=== PATIENT | female | born 1960 | race Caucasian/White ===

== ENCOUNTER 2020-05-22 11:44 | Emergency (ER) | payer OTHER, SELFPAY ==
--- NOTE | ~2020-05-22 | CT_ITS ---
EXAMINATION: CT brain wo con DATE: 05/22/2020 12:57 INDICATION: Fall with head injury TECHNIQUE: Computed tomography (CT) of the head was performed without intravenous contrast. Sagittal and coronal reconstructions were performed. The mA was adjusted according to patient size. Iterative reconstruction technique was employed. The dose-length product was 605.33 mGy-cm. COMPARISON: None FINDINGS: No fracture. No acute intracranial hemorrhage, acute infarction or abnormal extra axial fluid collect ion. Symmetric prominence of the sulci and subarachnoid spaces overlying the convexities consistent w ith mild age-appropriate diffuse cerebral volume loss. Ventricles are normal and symmetric. No mass/ mass effect. The orbits, paranasal sinuses and right mastoid air cells are normal. Postoperative baron ge of prior left mastoidectomy. IMPRESSION: 1. No fracture or acute intracranial process. Reviewed, dictated and finalized at location A. RONMENTAL SCIENTIST
--- NOTE | ~2020-05-22 | XR_ITS ---
EXAMINATION: XR shoulder RT min 2V DATE: 05/22/2020 13:08 INDICATION: Right shoulder pain and limited range of motion post fall down stairs one week prior TECHNIQUE: AP internally and externally rotated, AP oblique externally rotated and transscapular Y vi ews of the right shoulder were obtained. COMPARISON: None FINDINGS: There is mild widening of the right acromioclavicular joint with bulging of the joint capsule and sev eral calcification project over the widened disc space consistent with a likely type 2 acromioclavicu lar separation with minute capsular avulsion fracture fragments. No widening of the coracoclavicular interval to suggest higher grade injury. Alignment is otherwise normal. No other lesions suspicious f or fracture identified. Glenohumeral joint space is normal. Large calcified AP window lymph node cons istent with old granulomatous disease. Visualized portions of the lungs are clear. IMPRESSION: Likely type 2 acromioclavicular joint separation Reviewed, dictated and finalized at location A. CALL PHARMACY TECHNICIAN
--- NOTE | ~2020-05-22 | CT_ITS ---
EXAMINATION: CT cervical spine wo con DATE: 05/22/2020 12:57 INDICATION: Neck and bilateral shoulder pain post fall down stairs TECHNIQUE: Computed tomography (CT) of the cervical spine was performed without intravenous contrast. Automated exposure control and iterative reconstruction technique were employed. The dose-length pro duct was 278.08 mGy-cm. COMPARISON: None FINDINGS: Nonfocal mild reversal of the normal cervical lordosis which could be positional or secondary to musc le spasm. Vertebral body heights are normal. No fracture. Moderate disc height loss at C5-C6. There i s associated posterior disc bulge as well as severe bilateral uncovertebral osteoarthritis at this le esthela resulting in mild central canal and bilateral neural foraminal stenosis at this level. Mild disc height loss with additional disc bulges and mild bilateral uncovertebral osteoarthritis resulting in minimal central canal and neural foraminal stenosis at C3-C4 and C4-C5. Mild facet osteoarthritis at a few levels in the cervical spinal both the left and right. Small amount of atherosclerotic calcific lesion at the left carotid bulb. Cervical soft tissues are otherwise unremarkable. Status post left mastoidectomy. Visualized airway and apices of lungs are clear. IMPRESSION: 1. Cervical spondylosis, moderate at C5-C6, otherwise mild. No acute osseous abnormality. Reviewed, dictated and finalized at location A. LE TIER IMPRESSION: 1. Cervical spondylosis, moderate at C5-C6, otherwise mild. No acute osseous ab normality.
--- NOTE | ~2020-05-22 | XR_ITS ---
EXAMINATION: XR sternum min 2V DATE: 05/22/2020 13:08 INDICATION: Midsternal chest pain post fall TECHNIQUE: Lateral and oblique PA views of the sternum were obtained. COMPARISON: None. FINDINGS: Alignment is normal. No fracture. No evident presternal or retrosternal soft tissue swelling to sugge st occult injury. Prominent calcified AP window lymph nodes consistent with old granulomatous disease . Visualized portions of the lungs are clear. IMPRESSION: 1. No acute osseous abnormality. Reviewed, dictated and finalized at location A. IGERATION SPECIALIST
[2020-05-22 11:52] VITALS: BP 130/67; PULSE 75; RESP 20; TEMP 36.4; O2SAT 99
--- NOTE | 2020-05-22 13:13 | ED.FALL ---
HPI - Fall General Chief Complaint: Fall Stated Complaint: fall down stairs on 05/11 Time Seen by Provider: 05/22/20 12:12 Source: patient Mode of arrival: ambulatory Limitations: no limitations History of Present Illness HPI Narrative: Patient is a 59-year-old female who presents with multiple complaints and injuries after a fall on 05/11. Patient reports slipping and falling down 14 steps. Denies LOC. Reports hitting head and neck. Complaining of right shoulder pain and sternal pain. She denies chest pain or shortness of breath. She reports pain in the sternum with deep breathing. She reports not coming in sooner because she thought it was all musculoskeletal injuries but reports wanting to be checked out. She reports taking [id number] medications with limited pain relief. complaint: fall Related Data Allergies Allergy/AdvReac Type Severity Reaction Status Date / Time No Known Allergies Allergy Verified 05/22/20 12:16 Review of Systems Review of Systems: Narrative: CONSTITUTIONAL: Denies fever, chills, or sweats. EYES: Denies visual changes, redness, or discharge. ENT: Denies rhinorrhea, congestion, sore throat, or otalgia. CARDIOVASCULAR: Denies chest pain, palpitations, or edema. RESPIRATORY: Denies cough or dyspnea. GASTROINTESTINAL: Denies abdominal pain, nausea, vomiting, or diarrhea. GENITOURINARY: Denies dysuria or hematuria. SKIN: Denies rash or itching. MUSCULOSKELETAL: Right shoulder pain, sternal pain NEUROLOGIC: Denies headache, numbness, dizziness, or weakness. PSYCHIATRIC: Denies anxiety or depression. [facility] Past Medical History Medical History (Updated 05/22/20 @ 13:37 by LAURO Trejo) Epilepsy Family History Family History (Updated 05/22/20 @ 13:21 by LAURO Trejo) Other No significant family history Social History Social History (Updated 05/22/20 @ 13:22 by LAURO Trejo) Smoking status: Current every day smoker Tobacco type: cigarettes Alcohol intake: never Substance use: never Living arrangements: alone Gender identity (if verbalized by the patient): Female Exam Narrative: Exam Narrative: GENERAL: Well-appearing, well-nourished, and in no acute distress. HEAD: Normocephalic, atraumatic. EYES: No redness or drainage. ENT: Mucous membranes pink and moist. NECK: AROM. Supple. No lymphadenopathy. CHEST: No respiratory distress. HEART: Regular rate and rhythm. No murmur appreciated. EXTREMITIES: Normal range of motion. No edema. SKIN: Warm, dry, no rash. NEURO: No focal deficits. Alert and oriented x3. Gait steady. PSYCH: Normal affect. No signs of depression or anxiety. Course Vital Signs Vital signs: Vital Signs Temperature 36.4 C L 05/22/20 11:52 Pulse Rate 75 05/22/20 11:52 Respiratory Rate 20 05/22/20 11:52 Blood Pressure 130/67 05/22/20 11:52 Pulse Oximetry 99 05/22/20 11:52 Temperature 36.4 C L 05/22/20 11:52 Pulse Rate 75 05/22/20 11:52 Respiratory Rate 20 05/22/20 11:52 Blood Pressure 130/67 05/22/20 11:52 Pulse Oximetry 99 05/22/20 11:52 Reviewed-patient is informed that they may have pre-hypertension or hypertension based on a blood pressure reading. I recommend the patient call the primary care provider listed on their discharge instructions or a physician of their choice this week to arrange follow-up for further evaluation of possible pre-hypertension or hypertension. MDM - Fall MDM Narrative Medical decision making narrative: Patient CT of head normal unremarkable, x-ray of sternum was negative. Patient's x-ray of right shoulder shows a likely type 2 acromioclavicular joint separation. Patient put in sling for comfort, discussed pain management and follow-up with orthopedics. Patient is stable for discharge home with outpatient follow-up as discussed. Differential Diagnosis Differential diagnosis: Likely other (Sprain, strain, fracture, dislocation) Imaging Data
[2020-05-22 14:09] VITALS: BP 138/88; PULSE 80; RESP 20; O2SAT 99
== END 2020-05-22 14:11 | disposition home or self-care (01) ==
PROVIDERS: Emergency Provider Nurse Practitioner; PCP Family Medicine
DX: S43.101A Unspecified dislocation of right acromioclavicular joint, initial encounter (principal); G40.909 Epilepsy, unspecified, not intractable, without status epilepticus; F17.210 Nicotine dependence, cigarettes, uncomplicated; M47.812 Spondylosis without myelopathy or radiculopathy, cervical region; R03.0 Elevated blood-pressure reading, without diagnosis of hypertension; W10.9XXA Fall (on) (from) unspecified stairs and steps, initial encounter
CPT/HCPCS: 70450; 71120; 72125; 73030; 99284; A4565

== ENCOUNTER 2020-12-01 15:39 | Outpatient (CLI) | payer OTHER, SELFPAY ==
--- NOTE | ~2020-12-01 | MM_ITS ---
EXAMINATION: MM screening janelle BI w phan HISTORY: Screening mammogram TECHNIQUE: Craniocaudal and mediolateral oblique 3-D tomosynthesis images were obtained and synthetic 2-D images were generated. CAD analysis was submitted and interpreted. COMPARISON: 07/21/2018 BREAST PARENCHYMAL COMPOSITION: There are scattered areas of fibroglandular density. FINDINGS: There is no evidence of suspicious mass, calcification, or architectural distortion to sugg est malignancy in either breast. There has been no suspicious interval change. IMPRESSION: 1. No mammographic evidence of malignancy. 2. Recommend routine screening mammography in one year. BI-RADS Category 1: Negative Reviewed, dictated and finalized at location A.
== END 2020-12-01 15:40 | disposition home or self-care (01) ==
LOC: ANHIMG 15:43
PROVIDERS: PCP Family Medicine; Visit Provider Family Medicine
DX: Z12.31 Encounter for screening mammogram for malignant neoplasm of breast (principal)
CPT/HCPCS: 77063; 77067

== ENCOUNTER 2021-09-18 13:06 | Outpatient (CLI) | payer OTHER, SELFPAY | END 2021-09-18 13:07 | disposition home or self-care (01) | LOC: ANHAUDIO 13:07 | PROVIDERS: PCP Family Medicine; Visit Provider Otolaryngology | DX: H66.91 Otitis media, unspecified, right ear (principal) | CPT/HCPCS: 92557; 92567 ==

== ENCOUNTER 2021-12-14 07:59 | Outpatient (CLI) | payer OTHER, SELFPAY ==
--- NOTE | 2022-01-04 15:16 | WPDSLEEPSTUD ---
Sleep Study Date of Study: 12/14/21 Ordering Provider: Pablo Solis DO Interpreting Physician: Karlie Hoover MD Sleep Study Type: Polysomnogram Height: 1.7 m Weight: 80.739 kg Body Mass Index: 27.8 Neck Circumference (inches): 13 [place]: 19 Reason for Sleep Study Hypersomnolence Sleep History Pat Dahl is a 61-year-old woman with Obstructive sleep apnea using CPAP for many years. In 2013 she had gastric bypass with a 150 lb weight loss which she has maintained. She has had a sleep study since and this showed that she continued to have apnea. She has developed atrial fibrillation therefore a repeat sleep study has been ordered by Dr. Solis. There is a family history of sleep apnea with both parents 3 brothers and a sister all snoring loudly. She rarely awakens from sleep feeling short of breath. She occasionally awakens at night with heartburn, belching or coughing. She constantly snores and it is always loud enough that others complain about it. She frequently has trouble sleeping with a cold, but rarely gasps for breath at night. She occasionally has breathing problems at night observed by others. She occasionally sweats excessively night and frequently notices her heart pounding or beating irregularly at night. She constantly falls asleep during the day, occasionally falls asleep involuntarily and occasionally falls asleep while driving. She occasionally has loss of muscle tone with strong emotion. She frequently has daytime difficulties due to excessive sleepiness. She rarely feels paralyzed on waking or falling asleep. She constantly has vivid dreamlike scenes upon awakening or falling asleep. She does not feel afraid to go to sleep. She frequently has nightmares. She frequently remembers her dreams. She frequently has racing thoughts. She frequently feels sad or depressed. She constantly has anxiety. She frequently has muscular tension. She frequently notices parts of her body jerking and she frequently kicks at night. She frequently has crawling and aching feelings in her legs and leg pain during the night. She will occasionally has morning jaw pain. She does not grind her teeth during sleep. She occasionally is bothered by pain during the day, occasionally awakened by pain at night. She occasionally wakes up feeling stiff in the morning with sore achy muscles and pain in the neck and spine. She has headaches, memory problems and depression. Normal bedtime is 11:00 p.m. taking 30 minutes to fall asleep typically waking every hour or 2 to urinate. She returns to sleep within 10 minutes. She wakes the morning at 9:00 a.m.. On weekends, her bedtime is later, midnight to 1 a.m. and she wakes by 11:00 a.m.. She estimates getting 12-15 hours of sleep at night. She takes naps in the afternoon or evening. A short nap is not refreshing. She is usually drowsy for 3 hours after waking. She does not feel good in the morning, feels more alert in the afternoon and evening. Habits: Never smoked tobacco. Caffeine: she drinks tea. No alcohol or recreational drugs. [facility] Past Medical History Medical History Afib Allergies Anxiety Arthritis Bilateral carpal tunnel syndrome Bilateral hearing loss Body mass index (bmi) 29.0-29.9, adult (03/04/19) Depression Epilepsy GERD (gastroesophageal reflux disease) Hyperlipidemia Liver disease Obstructive sleep apnea KELIN on CPAP Seizure disorder Traumatic brain injury Surgical History Surgical History Gastric bypass status for obesity History of bilateral cataract extraction History of elbow surgery History of gastric bypass History of mastoidectomy Family History Family History Other Diabetes mellitus Family history of cardiovascular disease Family history of malignant neoplasm Social History Socia
[2022-01-04 15:20] VITALS: BMI 27.8
--- NOTE | 2022-01-17 12:05 | SLEEP ---
PT IS TO BE SCHEDULED FOR A PAP TITRATION
--- NOTE | 2022-06-01 09:39 | SLEEP ---
pt came in for a cpap titration [id number]
== END 2021-12-15 06:07 | disposition home or self-care (01) ==
PROVIDERS: PCP Family Medicine; Visit Provider Internal Medicine Cardiovascular Disease
DX: G47.33 Obstructive sleep apnea (adult) (pediatric) (principal); G25.81 Restless legs syndrome
CPT/HCPCS: 95810

== ENCOUNTER 2022-05-31 08:11 | Outpatient (CLI) | payer OTHER, SELFPAY ==
--- NOTE | 2022-06-18 07:46 | WPDSLEEPSTUD ---
Sleep Study Date of Study: 05/31/22 Ordering Provider: Pablo Solis DO Interpreting Physician: Marissa Gill DO Sleep Study Type: BiPAP Titration Height: 1.7 m Weight: 80.739 kg Body Mass Index: 27.8 Neck Circumference (inches): 13 [place]: 19 Reason for Sleep Study PSG on 12/14/2021 showed an AHI of 10.6 with desaturation down to 84%. She spent 24.2% of the study with an SpO2 below 88%. Sleep History Pat Dahl is a 61-year-old woman with Obstructive sleep apnea using CPAP for many years.? In 2013 she had gastric bypass with a 150 lb weight loss which she has maintained.? She has had a sleep study since and this showed that she continued to have apnea.? She has developed atrial fibrillation therefore a repeat sleep study has been ordered by Dr. Solis.? There is a family history of sleep apnea with both parents 3 brothers and a sister all snoring loudly.? She rarely awakens from sleep feeling short of breath.? She occasionally awakens at night with heartburn, belching or coughing.? She constantly snores and it is always loud enough that others complain about it. She frequently has trouble sleeping with a cold, but rarely gasps for breath at night.? She occasionally has breathing problems at night observed by others.? She occasionally sweats excessively night and frequently notices her heart pounding or beating irregularly at night.? She constantly falls asleep during the day, occasionally falls asleep involuntarily and occasionally falls asleep while driving. She occasionally has loss of muscle tone with strong emotion.? She frequently has daytime difficulties due to excessive sleepiness.? She rarely feels paralyzed on waking or falling asleep.? She constantly has vivid dreamlike scenes upon awakening or falling asleep.? She does not feel afraid to go to sleep.? She frequently has nightmares.? She frequently remembers her dreams.? She frequently has racing thoughts.? She frequently feels sad or depressed.? She constantly has anxiety.? She frequently has muscular tension.? She frequently notices parts of her body jerking and she frequently kicks at night.? She frequently has crawling and aching feelings in her legs and leg pain during the night.? She will occasionally has morning jaw pain.? She does not grind her teeth during sleep.? She occasionally is bothered by pain during the day, occasionally awakened by pain at night.? She occasionally wakes up feeling stiff in the morning with sore achy muscles and pain in the neck and spine.? She has headaches, memory problems and depression. Normal bedtime is 11:00 p.m. taking 30 minutes to fall asleep typically waking every hour or 2 to urinate.? She returns to sleep within 10 minutes.? She wakes the morning at 9:00 a.m..? On weekends, her bedtime is later, midnight to 1 a.m. and she wakes by 11:00 a.m..? She estimates getting 12-15 hours of sleep at night.? She takes naps in the afternoon or evening.? A short nap is not refreshing.? She is usually drowsy for 3 hours after waking.? She does not feel good in the morning, feels more alert in the afternoon and evening. Habits:? Never smoked tobacco.? Caffeine: she drinks tea.? No alcohol or recreational drugs. [facility] Past Medical History Medical History Afib Allergies Anxiety Arthritis Bilateral carpal tunnel syndrome Bilateral hearing loss Body mass index (bmi) 29.0-29.9, adult (03/04/19) Depression Epilepsy Epilepsy GERD (gastroesophageal reflux disease) Hyperlipidemia Liver disease Obstructive sleep apnea KELIN on CPAP Seizure disorder Traumatic brain injury Surgical History Surgical History Gastric bypass status for obesity Gastric bypass status for obesity History of bilateral cataract extraction History of elbow surgery History of gastric bypass History of mastoidectomy Family History Family History (Reviewed 06/18/22 @ 07:49
[2022-06-18 10:31] VITALS: BMI 27.8
== END 2022-06-01 05:35 | disposition home or self-care (01) ==
PROVIDERS: PCP Family Medicine; Visit Provider Internal Medicine Cardiovascular Disease
DX: G47.33 Obstructive sleep apnea (adult) (pediatric) (principal)
CPT/HCPCS: 95811

== ENCOUNTER 2023-07-22 08:32 | Outpatient (CLI) | payer OTHER, SELFPAY ==
--- NOTE | ~2023-07-22 | NM_ITS ---
EXAMINATION: NM trisha stress w perfusion DATE: 07/22/2023 10:55 INDICATION: Chest pain. TECHNIQUE: Rest images were obtained following intravenous administration of 10.3 mCi Tc99m tetrofosm in (Myoview). The patient was infused intravenously with Lexiscan (regadenoson). Then, 32.7 mCi Tc99m tetrofosmin (Myoview) was administered intravenously, and stress images were obtained. Data was marisa nstructed into short axis and horizontal and vertical long axis SPECT images. Gated SPECT images were also obtained. COMPARISON: None. FINDINGS: There is no definite reversible or fixed perfusion abnormality to suggest ischemia or infar ction. There is no segmental wall motion abnormality. Left ventricular ejection fraction measures > 70%. IMPRESSION: 1. No definite ischemia or infarct. 2. Normal left ventricular ejection fraction measuring >70%. Reviewed, dictated and finalized at location E. ER HELPER
--- NOTE | 2023-07-22 09:15 | EST_ITS ---
Patient Info Name: Pat Dahl Age: 62 years : 1960 Gender: Female Ht: 67 in Wt: 195 lbs BSA: 2.07 m2 HR: 58 bpm BP: 97 / 61 mmHg Heart Rhythm: Sinus Rhythm Exam Date: 07/22/2023 9:28 AM Exam Location: Echo Lab Patient Status: Outpatient Admit Date: 07/22/2023 Staff Ordering Physician: Pablo Solis DO Attending Provider: Pablo Solis DO Exercise Technologist: Amara Leonardo CT Exercise Physician: Pablo Solis DO Exam Type: CA stress trisha w NM Study Info Indications R07.89 - Other chest pain A regadenoson stress test was performed. Summary 1. 1. Negative lexiscan stress test for ischemic ST changes by ECG criteria. 2. 2. Stable hemodynamics throughout the test. 3. 3. Nuclear scan to follow and will be reported separately. Please correlate with it. 4. 4. Patient informed of the above results. Protocol: Lexiscan Stress ECG Details Stage: REST Duration (min): 1 min : 8 sec HR (bpm): 59 SBP (mmHg): 97 DBP (mmHg): 61 Stage: REST Duration (min): 6 min : 4 sec HR (bpm): 55 SBP (mmHg): 97 DBP (mmHg): 61 Stage: STAGE 1 Duration (min): 1 min : 0 sec HR (bpm): 70 SBP (mmHg): 116 DBP (mmHg): 62 Stage: RECOVERY Duration (min): 1 min : 0 sec HR (bpm): 80 SBP (mmHg): 116 DBP (mmHg): 62 Stage: RECOVERY Duration (min): 2 min : 0 sec HR (bpm): 76 SBP (mmHg): 116 DBP (mmHg): 62 Stage: RECOVERY Duration (min): 3 min : 0 sec HR (bpm): 73 SBP (mmHg): 100 DBP (mmHg): 65 Stage: RECOVERY Duration (min): 4 min : 0 sec HR (bpm): 77 SBP (mmHg): 100 DBP (mmHg): 65 Stage: RECOVERY Duration (min): 4 min : 53 sec HR (bpm): 77 SBP (mmHg): 104 DBP (mmHg): 64 Rest HR: 55 bpm Peak HR: 82 bpm Rest Sys BP: 97 mmHg Peak Sys BP: 116 mmHg Max Pred HR: 160 bpm % Max Pred HR: 51 % Target HR: 136 bpm Max RPP: 9,512 bpm*mmHg Termination Reason: Completed protocol Cardiac Symptoms: Shortness of breath Total Time: 1 min : 0 sec Rest Donis BP: 61 mmHg Peak Donis BP: 62 mmHg Total Dose: 0.4 mg Resting ECG Sinus rhythm. Stress ECG No ST changes. Arrhythmias None. Report Signatures
== END 2023-07-22 08:33 | disposition home or self-care (01) ==
PROVIDERS: PCP Family Medicine; Visit Provider Internal Medicine Cardiovascular Disease
DX: R07.9 Chest pain, unspecified (principal)
CPT/HCPCS: 78452; 93017; A9502; J2785

== ENCOUNTER 2024-08-25 11:49 | Outpatient (CLI) | payer OTHER, SELFPAY ==
--- OUTSIDE RECORDS SUMMARY | 2024-08-25 13:13 | XMS_ITS | Clinical Summary ---
Author Organization [facility] [employer] Address [address] [place] [address] Care Team Providers Care Supervisor Fertilizer Processing Name Role Phone Linda Saunders RN Unavailable Linda Saunders RN Unavailable [phone] Selena Ramos MD Primary Care Provider + Source Comments [facility] [employer],non-owned Affiliates and Associated Physician Practices is amultiple site organization consisting of ambulatory clinics and hospital sitesin [place], [place], [place] and [place]. This disclosure is being madepursuant to the Care Everywhere program and may not contain all information available regarding this patient. Last updated 18.[facility] [employer] Allergies No known active allergies Medications * Be aware that medications may not be up to date on this document. Alwaysverify current medications with the patient. Medication Sig Dispensed Refills Start Date End Date Status fluticasone-salmeter ol (ADVAIR DISKUS) 250-50 MCG/DOSE inhalerIndications:M orbid obesity (HCC) Inhale 1 Puff by mouth 2 times daily. Active albuterol HFA (PROVENTIL;VENTOLIN; PROAIR) 108 (90 BASE) MCG/ACT inhalerIndications:M orbid obesity (HCC) Inhale 2 Puffs by mouth every 6 hours as needed. Active omeprazole (PRILOSEC) 20 MG capsule Take 20 mg by mouth daily before breakfast. Active venlafaxine (EFFEXOR) 75 MG tablet Take 1 Tab by mouth 2 times daily. 60 Tab 1 10/28/2013 Active aspirin EC (Ecotrin) 81 MG tablet Take 1 (one) tablet by mouth once daily Active busPIRone (Buspar) 10 MG tablet TAKE 1 TABLET BY MOUTH TWICE A DAY DIRECTED 10/10/2023 Active famotidine (Pepcid) 20 MG tablet Take 1 (one) tablet by mouth 2 times daily as needed Active ferrous sulfate 325 (65 FE) MG tablet TAKE 1 TABLET BY MOUTH EVERY DAY FOR 30 DAYS 10/24/2023 Active flecainide (Tambocor) 150 MG tablet Take 1 (one) tablet by mouth every 12 hours Active FLUoxetine (PROzac) 20 MG capsule TAKE 1 CAPSULE EVERY DAY BY ORAL ROUTE AT NOON. 10/24/2023 Active metoprolol tartrate IR (Lopressor) 25 MG tablet Take 1 (one) tablet by mouth 2 times daily Active QUEtiapine (SEROquel) 25 MG tablet Take 1 (one) tablet by mouth 10/10/2023 Active divalproex ER 24hr (Depakote ER) 500 MG tabletIndications:Se melita ([facility]) TAKE 4 (FOUR) TABLETS BY MOUTH AT BEDTIME 120 tablet 5 06/22/2024 Active zonisamide (Zonegran) 100 MG capsuleIndications:S eizure ([facility]) Take 1 (one) capsule by mouth once daily 30 capsule 5 06/22/2024 Active Active Problems Problem Noted Date Diagnosed Date Anxiety Epilepsy Asthma High cholesterol Arthritis Sleep apnea Encounters Date Type Department Care Team Description 06/22/2024 Refill [facility] - Neurology [address] [place] [address] [phone] Jonah Infante MD Refill Request from Last 3 Months Immunizations Name Administration Dates Next Due PNEUMOCOCCAL PPSV23 10/28/2013 Social History Tobacco Use Types Packs/Day Years Used Date Smoking Tobacco: Never Smokeless Tobacco: Never Tobacco Cessation:Counseling Given: Yes Alcohol Use Standard Drinks/Week Comments Yes 0 (1 standard drink = 0.6 oz pur e alcohol) occ Sex and Gender Information Value Date Recorded Sex Assigned at Not on file Gender Identity Not on file Sexual Orientation Not on file Last Filed Vital Signs Vital Sign Reading Time Taken Comments Blood Pressure 112/74 11/05/2023 7:56 AM CDT Pulse 69 11/05/2023 7:56 AM CDT Temperature 36.1 C (97 F) 11/02/2013 3:35 PM CDT Respiratory Rate 18 10/28/2013 11:39 AM CDT Oxygen Saturation 99% 11/05/2023 7:56 AM CDT Inhaled Oxygen Concentration - - Weight 85.3 kg (188 lb) 11/05/2023 7:56 AM CDT Height 170.2 cm (5' 7 ) 11/05/2023 7:56 AM CDT Body Mass Index 29.44 11/05/2023 7:56 AM CDT Plan of Treatment Health Maintenance Due Date Last Done Comments COLOGUARD (AGES 45-75) - COLON CA SCREENING 1962 COLON MONITORING 1962 COLONOSCOPY - COLON CA SCREENING 1962 CT COLONOGRAPHY - COLON CA SCREENING 1962 Colorectal Cancer Screening 1962 FIT - COLON CA SCREENING 1962 FLEX SIG - COLON CA SCREENING 1962 LIPID TESTING 1962 HIV SCREENING 1977 HEPATITIS C SCREENING 09/09/1980 DTAP/TDAP/TD VACCINES (1 - Tdap) 1981 ZOSTER VACCINE (1 of 2) 2012 PNEUMOCOCCAL VACCINE 50+ (2 of 2 - PCV) 10/28/2014 10/28/2013 MAMMOGRAM 09/05/2015 09/04/2013 PAP SMEAR 07/09/2016 07/09/2013 Respiratory Syncytial Virus (RSV) Vaccine Pt: or over 60 yrs (1 - Risk 60-74 years 1-dose series) 2022 COVID-19 VACCINE ( - season) 2024 DEPRESSION SCREENING 05/20/2024 INFLUENZA VACCINE (Season Ended) 2025 SCREENING FOR DIABETES 11/04/2026 , 10/28/2013, 10/28/2013, Additional history exists HEPATITIS B VACCINE Aged Out No longe r eligible based on patient's age to complete this topic HIB VACCINE Aged Out No longer eligi ble based on patient's age to complete this topic HPV VACCINE Aged Out No longer eligi ble based on patient's age to complete this topic MENINGOCOCCAL (Group B) VACCINE SHARED DECISION-MAKING Aged Out No longer eligible based on patient's age to complete this topic MENINGOCOCCAL GROUPS A/C/Y/W VACCINE Aged Out No longer eligible based on patient's age to complete this topic Procedures Procedure Name Priority Date/Time Associated Diagnosis Comments COMPREHENSIVE METABOLIC PANEL Routine 11/05/2023 9:08 AM CDT Seizure from Last 3 Months or Most Recently Relevant to Health Maintenance Results * (ABNORMAL) COMPREHENSIVE METABOLIC PANEL (11/05/2023 9:08 AM CDT) BUN 13 7 - 26 mg/dL 11/05/2023 10:10 AM [facility] Creatinine 0.89 0.56 - 0.96 mg/dL 11/05/2023 10:10 AM [facility] Sodium 143 136 - 145 mmol/L 11/05/2023 10:10 AM [facility] Potassium 4.6(H) 3.5 - 4.5 mmol/L 11/05/2023 10:10 AM [facility] Chloride 105 98 - 107 mmol/L 11/05/2023 10:10 AM [facility] CO2 30(H) 22 - 29 mmol/L 11/05/2023 10:10 AM [facility] Glucose 78 70 - 115 mg/dL 11/05/2023 10:10 AM [facility] Calcium 9.2 8.4 - 10.2 mg/dL 11/05/2023 10:10 AM [facility] Protein Total 6.4 6.0 - 8.3 g/dL 11/05/2023 10:10 AM [facility] Albumin 3.5 3.4 - 5.0 g/dL 11/05/2023 10:10 AM [facility] Bilirubin Total 0.4 0.2 - 1.2 mg/dL 11/05/2023 10:10 AM [facility] Alkaline Phosphatase 71 40 - 150 U/L 11/05/2023 10:10 AM [facility] ALT 18 5 - 55 U/L 11/05/2023 10:10 AM [facility] AST 24 5 - 34 U/L 11/05/2023 10:10 AM [facility] Anion Gap 8 6 - 16 11/05/2023 10:10 AM [facility] BUN/Creatinine Ratio 15 7 - 23 11/05/2023 10:10 AM [facility] Osmolality Calculated 295 275 - 295 mOsm/kg 11/05/2023 10:10 AM [facility] Albumin/Globulin Ratio 1.2 1.1 - 2.3 11/05/2023 10:10 AM [facility] eGFR by CKD-EPI 74(L) >=90 mL/min/1.7 3 m2 11/05/2023 10:10 AM [facility] Blood BLOOD SPECIMEN / Unknown Lab Venipuncture / Unknown 11/05/2023 9:08 AM CDT 11/05/2023 9:28 AM CDT Benito Cantrell STOCKRO[employer] ATTENDANT-PAVER OPERATOR LAB - CHEMISTRY O RDERABLES [facility] [address] [place] [address], [facility] [phone] from Last 3 Months or Most Recently Relevant to Health Maintenance Advance Directives * Full Code (Latest Code Status on File) Date Activated Date Inactivated Comments 10/27/2013 1:46 PM 10/28/2013 4:25 PM Care Teams Supervisor Fertilizer Processing Relationship Specialty Start Date End Date Selena Ramos MD [address] [place] [id number] PCP - General 05/25/19 Linda Saunders RN Personal Trainer 10/28/13 Linda Saunders RN Personal Trainer 10/28/13
--- OUTSIDE RECORDS SUMMARY | 2024-08-25 13:13 | XMS_ITS | Clinical Summary ---
Author Organization [facility] [address] Address [address] [place] [address] Care Team Providers Care Vocational Nurse Name Role Phone Selena Ramos MD Primary Care Prov ider Jonah Infante MD Unavailable [phone] Allergies No known active allergies Medications flecainide (TAMBOCOR) 150 mg tablet Take 1 tablet (150 mg total) by mouth 2 (two) times a day Active metoprolol tartrate (LOPRESSOR) 25 mg immediate release tablet Take 1 tablet (25 mg total) by mouth 2 (two) times a day Active busPIRone (BUSPAR) 15 mg tablet Take 1 tablet (15 mg total) by mouth 2 (two) times a day Active DULoxetine DR (CYMBALTA) 60 mg capsule Take 1 capsule (60 mg total) by mouth every morning 07/01/2024 Active QUEtiapine (SEROquel) 25 mg tablet Take 1 tablet (25 mg total) by mouth nightly Active divalproex ER (DEPAKOTE ER) 500 mg 24 hr tablet Take 4 tablets (2,000 mg total) by mouth nightly 06/22/2024 Active Active Problems Problem Noted Date Diagnosed Date AMS (altered mental status) 07/21/2024 Thrombocytopenia 07/21/2024 Seizure disorder 07/21/2024 Hx of seizure disorder 07/21/2024 ALEJANDRINA (iron deficiency anemia) 06/25/2023 Encounters Date Type Department Care Team Description 07/21/2024 11:01 AM RECYCLE WORKER - 07/23/2024 5:35 PM RECYCLE WORKER Hospital Encounter [address] [place] [address] Mark Moncada DO [place], MD [facility]gs Sobhana Krishna, MD Altered mental status, unspecified altered mental status type (Primary Dx); Hx of seizure disorder; Physical deconditioning; Unsteady gait Discharge Disposition: Discharge to home or self care 07/03/2024 11:00 AM RECYCLE WORKER - 07/03/2024 11:59 PM RECYCLE WORKER Hospital Encounter [facility] [address] [place] [address] Screening mammogram, encounter for Discharge Disposition: Discharge to home or self care 07/03/2024 Telephone [facility] [address] [place] [id number] Leonardo De Jesus Si, MD from Last 3 Months Immunizations Immunization Administration Dates Next Due COVID-19 mRNA ([employer]) 0.3 m L (30 mcg) vaccine (12 years and up) 01/17/2024 Surgical History Surgery Date Site/Laterality Comments GASTRIC BYPASS MASTOIDECTOMY HAND SURGERY Left CARPAL TUNNEL RELEASE Right COLONOSCOPY hx of polyps ELBOW SURGERY Left Medical History Medical History Date Comments Seizure disorder (HCC) Atrial fibrillation (HCC) Sleep apnea Social History Tobacco Use Types Packs/Day Years Used Date Smoking Tobacco: Never Smokeless Tobacco: Never [facility] Utilities Answer Date Recorded In the past 12 months has e Detectent, gas, oil, or water [employer] threatened to shut off services in your home? No 07/22/2024 Social Connection and Isolation Panel [NHANES] A nswer Date Recorded In a typical week, how many times do you talk on the phone with family, friends, or neighbors? Once a week 07/22/2024 How often do you get together with friends or re latives? Once a week 07/22/2024 How often do you attend mandaeism or baptism serv ices? Never 07/22/2024 Do you belong to any clubs o r organizations such as mandaeism groups, unions, fraternal or athletic groups, or school groups? No 07/22/2024 How often do you attend meet ings of the clubs or organizations you belong to? Never 07/22/2024 Are you , , di vorced, , never , or living with a partner? Never 07/22/2024 AUDIT-C Answer Date Recorded Q1: How often do you have a drink containing alc ohol? Monthly or less 09/29/2021 Q2: How many drinks containi ng alcohol do you have on a typical day when you are drinking? 1 or 2 09/29/2021 Q3: How often do you have si x or more drinks on one occasion? Never 09/29/2021 Overall Financial Resource Strain (CARDIA) Answe r Date Recorded How hard is it for you to pa y for the very basics like food, housing, medical care, and heating? Somewhat hard 07/22/2024 PHQ-2 Answer Date Recorded PHQ-2 Total Score 3 07/23/2024 Hunger Vital Sign Answer Date Recorded Within the past 12 months, y ou worried that your food would run out before you got the money to buy more. Sometimes true Within the past 12 months, t he food you bought just didn't last and you didn't have money to get more. Sometimes true 09/2024 PRAPARE - Transportation Answer Date Re corded In the past 12 months, has l ack of transportation kept you from medical appointments or from getting medications? No 09/2024 In the past 12 months, has l ack of transportation kept you from meetings, work, or from getting things needed for daily living? No 07/22/2024 PHQ-9 Answer Date Recorded PHQ-9 Total Score 12 07/23/2024 Housing Stability Vital Sign Answer Fred e Recorded In the last 12 months, was t here a time when you were not able to pay the mortgage or rent on time? Yes 07/22/2024 In the past 12 months, how m any times have you moved where you were living? 0 07/22/2024 At any time in the past 12 [address] [place], were you homeless or living in a senior living (including now)? No 07/22/2024 Personal Safety Answer Date Recorded Have you ever been in or are you currently in a harmful physical or emotional relationship or is someone making you feel afraid or unsafe? Denies 07/21/2024 Comments No Sex and Gender Information Value Date Recorded Sex Assigned at Not on file Legal Sex Female 7:33 PM RECYCLE WORKER Gender Identity Not on file Sexual Orientation Not on file Obstetrics History Para Term AB IAB SAB Ectopic Multiple Livin g Live Births 0 0 0 0 0 0 0 0 0 0 0 Last Filed Vital Signs Vital Sign Reading Time Taken Comments Blood Pressure 122/76 07/23/2024 2:45 PM RECYCLE WORKER Pulse 87 07/23/2024 2:45 PM RECYCLE WORKER Temperature 36.6 C (97.9 F) 07/23/2024 2:45 PM RECYCLE WORKER Respiratory Rate 18 07/23/2024 2:45 PM RECYCLE WORKER Oxygen Saturation 94% 07/23/2024 2:45 PM RECYCLE WORKER Inhaled Oxygen Concentration - - Weight 88.4 kg (194 lb 14.2 oz) 07/21/2024 7:45 PM RECYCLE WORKER Height 170.2 cm (5' 7 ) 07/21/2024 7:45 PM RECYCLE WORKER Body Mass Index 30.52 07/21/2024 7:45 PM RECYCLE WORKER Plan of Treatment Health Maintenance Due Date Last Done Comments Colon Cancer Screening-Colonoscopy 1962 Hepatitis C Screening 1962 DTaP/Tdap/Td Vaccine (1 - Tdap) 1973 Hepatitis B Screening 1980 Regular Well Visit/Exam 18-64 1980 Zoster Vaccine (1 of 2) 2012 Cervical Cancer Screening 07/09/2014 07/09/2013 Pneumococcal vaccine <65 (2 of 2 - PCV) 10/28/2014 10/28/2013 Influenza Vaccine (Season Ended) 2025 06/01/2021, 05/21/2019, 06/26/2018, Additional history exists Breast Cancer Screening-Mammogram 07/03/2025 07/03/2024, 09/04/2013, 09/04/2013 Depression Screening 07/21/2025 07/21/2024, 07/22/19 Covid-19 Vaccine Completed 01/17/2024, , 12/24/2020, Additional history exists Medical Devices Implanted Type Area [employer]roll Bookkeeper Device Identifier Shelf Expiration Date Model / Serial / Lot Pin,Screw Right: Elbow Hardware Right: Hand Procedures Procedure Name Priority Date/Time Associated Diagnosis Comments CANNABINOIDS, URINE, CONFIRMATION Routine 07/23/2024 3:12 PM RECYCLE WORKER BENZODIAZEPINE, URINE, CONFIRMATION Routine 07/23/2024 3:12 PM RECYCLE WORKER DRUG SCREEN, URINE L AND D WITH REFLEX CONFIRMATION Routine 07/23/2024 3:12 PM RECYCLE WORKER EGFR STAT 07/23/2024 2:13 PM RECYCLE WORKER DIFFERENTIAL AUTO STAT 07/23/2024 2:1 3 PM RECYCLE WORKER CBC WITH AUTO DIFFERENTIAL STAT 07/23/2024 2:13 PM RECYCLE WORKER BASIC METABOLIC PANEL STAT 07/23/2024 2:13 PM RECYCLE WORKER MRI BRAIN EPILEPSY W WO CONTRAST IP Routine 07/23/2024 11:47 AM RECYCLE WORKER MAGNESIUM Routine 07/22/2024 4:47 AM RECYCLE WORKER EGFR Routine 07/22/2024 4:47 AM RECYCLE WORKER CBC WITHOUT DIFFERENTIAL Routine 07/22/2024 4:47 AM RECYCLE WORKER BASIC METABOLIC PANEL Routine 07/22/2024 4:47 AM RECYCLE WORKER VITAMIN B12 Routine 07/21/2024 8:00 PM RECYCLE WORKER FOLATE Routine 07/21/2024 8:00 PM RECYCLE WORKER HOMOCYSTEINE Add-On 07/21/2024 8:00 PM RECYCLE WORKER METHYLMALONIC ACID, SERUM Add-On 07/21/2024 8:00 PM RECYCLE WORKER HIV 1/2 ANTIBODY PLUS P24 ANTIGEN Add-On 07/21/2024 8:00 PM RECYCLE WORKER RPR Add-On 07/21/2024 8:00 PM RECYCLE WORKER TROPONIN T HIGH-SENSITIVITY 2-HOUR Timed 07/21/2024 1:[address] HEAD WO CONTRAST ED 07/21/2024 1 :05 PM RECYCLE WORKER URINALYSIS AND REFLEX TO MICROSCOPIC AND CULTURE STAT 07/21/2024 12:47 PM RECYCLE WORKER TROPONIN T HIGH-SENSITIVITY SERIES (BASELINE, 2HR, 4HR, 6HR) STAT 07/21/2024 12:00 PM RECYCLE WORKER COMPREHENSIVE METABOLIC PANEL STAT 07/21/2024 12:00 PM RECYCLE WORKER EGFR STAT 07/21/2024 12:00 PM RECYCLE WORKER TSH STAT 07/21/2024 12:00 PM RECYCLE WORKER DIFFERENTIAL AUTO STAT 07/21/2024 12: 00 PM RECYCLE WORKER VALPROIC ACID LEVEL, TOTAL STAT 07/21/2024 12:00 PM RECYCLE WORKER CBC WITH AUTO DIFFERENTIAL STAT 07/21/2024 12:00 PM RECYCLE WORKER XR CHEST 1 VIEW ED 07/21/2024 11:47 AM RECYCLE WORKER ECG 12-LEAD STAT 07/21/2024 11:15 AM RECYCLE WORKER SCREENING MAMMOGRAM BILATERAL W EVANGELIST Schedule Routine, Read Routine (OP Routine) 07/03/2024 11:19 AM RECYCLE WORKER Screening mammogram, encounter for from Last 3 Months Results * (ABNORMAL) Drug Screen, Urine L and D with Reflex Confirmation (07/23/2024 3:12 PM RECYCLE WORKER) Amphetamine, ur Not Detected CutOff 500ng/mL Comment: Interpretive Data - Amphetamines: Samples containing greater than 500 ng/mL d-methamphetamine or other cross-reacting amphetamine compounds are reported as positive. Amphetamine immunoassays are subject to significant false positive rates due to cross-reactivity of non-amphetamine drugs. Confirmatory testing required for definitive results. Current Interpretive Data was last reviewed 2022. Barbiturates, ur Not Detected CutOff 200ng/mL [facility] Comment: Interpretive Data - Barbiturates: Samples containing greater than 200 ng/mL secobarbital or other cross-reacting barbiturate compounds are reported as positive. False positive and false negative results are possible. Confirmatory testing required for definitive results. Current Interpretive Data was last reviewed 2022. Benzodiazepines, ur Screen Positive, presumptive (A) CutOff 100ng/mL [facility] Comment: Interpretive Data - Benzodiazepines: Samples containing greater than 100 ng/mL nordiazepam or other cross-reacting compounds are reported as positive. False positive and false negative results are possible. Confirmatory testing required for definitive results. Current Interpretive Data was last reviewed 2022. Cannabinoids, ur Screen Positive, presumptive (A) CutOff 50 ng/mL [facility] Comment: Interpretive Data - Cannabinoids: Samples containing greater than 50 ng/mL delta-9 THC -COOH or other cross- reacting compounds are reported as positive. False positive and false negative results are possible. Confirmatory testing required for definitive results. Current Interpretive Data was last reviewed 2022. Cocaine, ur Not Detected CutOff 150ng/mL [facility] Comment: Interpretive Data - Cocaine: Samples containing greater than 150 ng/mL benzoylecgonine or other cross- reacting compounds are reported as positive. False positive and false negative results are possible. Confirmatory testing required for definitive results. Current Interpretive Data was last reviewed 2022. Fentanyl, Ur Not Detected CutOff 5 ng/mL [facility] Comment: Interpretive Data - Fentanyl: Samples containing greater than 5 ng/mL norfentanyl, fentanyl, or other cross-reacting fentanyl compounds are reported as positive. False positive and false negative results are possible. Confirmatory testing required for definitive results. Current Interpretive Data was last reviewed 2023. Methadone, ur Not Detected CutOff 300ng/mL [facility] Comment: Interpretive Data - Methadone: Samples containing greater than 300 ng/mL d,l-methadone or other cross-reacting compounds are reported as positive. False positive and false negative results are possible. Confirmatory testing required for definitive results. Current Interpretive Data was last reviewed 2022. Opiates, ur Not Detected CutOff 300ng/mL [facility] Comment: Interpretive Data - Opiates: Samples containing greater than 300 ng/mL morphine or other cross-reacting compounds are reported as positive. False positive and false negative results are possible. Confirmatory testing required for definitive results. Current Interpretive Data was last reviewed 2022. Oxycodone, ur Not Detected CutOff 100ng/mL [facility] Comment: Interpretive Data - Oxycodone: Samples containing greater than 100 ng/mL oxycodone or other cross-reacting compounds are reported as positive. False positive and false negative results are possible. Confirmatory testing required for definitive results. Current Interpretive Data was last reviewed 2022. Phencyclidine, ur Not Detected CutOff 25 ng/mL [facility] Comment: Interpretive Data - Phencyclidine: Samples containing greater than 25 ng/mL phencyclidine or other cross-reacting compounds are reported as positive. False positive and false negative results are possible. Confirmatory testing required for definitive results. Current Interpretive Data was last reviewed 2022. Urine Creatinine 214 mg/dL [facility] Comment: Interpretive Data Urine Creatinine: < 10 mg/dL is extremely dilute = or > 10 but < 20 mg/dL is dilute = or > 20 mg/dL is normal Current Interpretive Data was last revised on 2017. Urine 07/23/2024 3:12 PM RECYCLE WORKER 07/23/2024 3:20 PM RECYCLE WORKER Narrative [facility] - 07/23/2024 3:47 PM RECYCLE WORKER Drug of Abuse screening is performed by immunoassay for medical purposes only. This is not to be used for Pain Management purposes. If Detected, confirmation testing will be performed for Amphetamines, Barbiturates, Benzodiazepines, Cannabinoids, Cocaine, Fentanyl, Methadone, Opiates, Oxycodone or Phencyclidine. us Ilda Albert MD LAB URINE ORDERABLES Final Result [facility] [address] [facility] Department [place] [address] * Cannabinoids, urine, confirmation (07/23/2024 3:12 PM RECYCLE WORKER) Delta-8 Carboxy-THC 13 Cutoff: 5 ng/mL [facility] Lab Delta-9 Carboxy-THC 244 Cutoff: 5 ng/mL [facility] Cannabinoids ur interpretation Positive. [facility] Comment: ADDITIONAL INFORMATION This report is intended for use in clinical monitoring and management of patients. It is not intended for use in employment-related testing. This test was developed and its performance characteristics determined by [facility] in a manner consistent with CLIA requirements. This test has not been cleared or approved by the U.S. Food and Drug Administration. Test Performed by: [facility] [address] [place] [address] [employer] Roofing Installer: Fazal Zavaleta Ph.D.; CLIA# [id number] Urine 07/23/2024 3:12 PM RECYCLE WORKER 07/23/2024 3:47 PM RECYCLE WORKER Ilda Albert MD LAB URINE ORDERABLES Final Result [facility] [address] Department [place] [address] [place] [facility] * Benzodiazepine, urine, confirmation (07/23/2024 3:12 PM RECYCLE WORKER) Nordiazepam, ur Negative Cutoff: 10 ng/mL [place] [facility] Oxazepam, ur Negative Cutoff: 10 ng/mL [facility] Lorazepam, ur 167 Cutoff: 10 ng/mL [facility] Temazepam, ur Negative Cutoff: 10 ng/mL [facility] 2-hydroxy ethyl flurazepam, ur Negative Cutoff: 10 ng/mL [facility] 7-aminoclonazepam, ur Negative Cutoff: 10 ng/mL [facility] Alpha-hydroxyalpraz olam, ur Negative Cutoff: 10 ng/mL [facility] 7-aminoflunitrazepa m, ur Negative Cutoff: 10 ng/mL [facility] Alpha-hydroxy triazolam, ur Negative Cutoff: 10 ng/mL [facility] Benzo interp, ur Positive. [facility] Comment: ADDITIONAL INFORMATION This report is intended for use in clinical monitoring and management of patients. It is not intended for use in employment-related testing. This test was developed and its performance characteristics determined by [facility] in a manner consistent with CLIA requirements. This test has not been cleared or approved by the U.S. Food and Drug Administration. Test Performed by: [facility] [address] [place] [address] [employer] Ro[employer] Installer: Fazal Zavaleta Ph.D.; CLIA# [id number] Alprazolam, ur Negative Cutoff: 10 ng/mL [facility] Chlordiazepoxide, ur Negative Cutoff: 10 ng/mL [facility] Clonazepam, ur Negative Cutoff: 10 ng/mL [facility] Diazepam, ur Negative Cutoff: 10 ng/mL [facility] Midazolam, ur Negative Cutoff: 10 ng/mL [facility] Alpha-hydroxy midazolam, ur Negative Cutoff: 10 ng/mL [facility] Clobazam, ur Negative Cutoff: 10 ng/mL [facility] N-desmethylclobazam , ur Negative Cutoff: 10 ng/mL [facility] Flunitrazepam, ur Negative Cutoff: 10 ng/mL [facility] Flurazepam, ur Negative Cutoff: 10 ng/mL [facility] Prazepam, ur Negative Cutoff: 10 ng/mL [facility] Triazolam, ur Negative Cutoff: 10 ng/mL [facility] Zolpidem, ur Negative Cutoff: 10 ng/[facility] Zolpidem leqylf-6-eomashhhta acid, ur Negative Cutoff: 10 ng/mL [facility] Urine 07/23/2024 3:12 PM RECYCLE WORKER 07/23/2024 3:47 PM RECYCLE WORKER us Ilda Albert MD LAB URINE ORDERABLES Final Result [facility] [address] [facility] Department [place] [address] [place] ref [facility] * (ABNORMAL) eGFR (07/23/2024 2:13 PM RECYCLE WORKER) eGFR 55(L) >=60 mL/min/1. 73 m2 Comment: Interpretive Data Reference Interval Normal >/= 90 mL/min/1.73m2 Mildly decreased* 60 - 89 mL/min/1.73m2 Mildly to moderately decreased 45 - 59 mL/min/1.73m2 Moderately to severely decreased 30 - 44 mL/min/1.73m2 Severely decreased 15 - 29 mL/min/1.73m2 Kidney Failure < 15 mL/min/1.73m2 *Relative to young adult level Estimated glomerular filtration rate is determined by the 2020 CKD-EPI equation recommended by the National Kidney Foundation (A Unifying Approach to GFR Estimation: Recommendations of the NKF-ASK Task Force on Reassessing the Inclusion of Race in Diagnosing Kidney Disease, JASN 2020). The CKD-EPI equation should not be used for patients with unstable renal function and has not been validated in children and those over 70. Current interpretive data was last reviewed 2021. Blood 07/23/2024 2:13 PM RECYCLE WORKER 07/23/2024 2:59 PM RECYCLE WORKER Ilda Albert MD LAB BLOOD ORDERABLES Final Result [facility] [address] [facility] Department [place] [address] * Differential, auto (07/23/2024 2:13 PM RECYCLE WORKER) Pathologist [facility] Neutrophil abs 2.8 1.5 - 6.5 K/cumm Imm gran abs 0.0 0.0 - 0.1 K/cumm [facility] Lymphocyte abs 1.5 0.8 - 3.3 K/cumm [facility] Monocyte abs 0.4 0.2 - 0.8 K/cumm [facility] Eosinophil abs 0.2 0.0 - 0.5 K/cumm [facility] Basophil abs 0.0 0.0 - 0.1 K/cumm [facility] Neutrophil pct 57.1 % [facility] Comment: Interpretive Data Percent cell count reference ranges are not reported, since discordance with absolute values may lead to misinterpretation of CBC data. Current Interpretive Data was last revised on 2017. Imm gran pct 0.2 % [facility] Comment: Interpretive Data Percent cell count reference ranges are not reported, since discordance with absolute values may lead to misinterpretation of CBC data. Current Interpretive Data was last revised on 2017. Lymphocyte pct 30.9 % [facility] Comment: Interpretive Data Percent cell count reference ranges are not reported, since discordance with absolute values may lead to misinterpretation of CBC data. Current Interpretive Data was last revised on 2017. Monocyte pct 7.5 % [facility] Comment: Interpretive Data Percent cell count reference ranges are not reported, since discordance with absolute values may lead to misinterpretation of CBC data. Current Interpretive Data was last revised on 2017. Eosinophil pct 4.1 % [facility] Comment: Interpretive Data Percent cell count reference ranges are not reported, since discordance with absolute values may lead to misinterpretation of CBC data. Current Interpretive Data was last revised on 2017. Basophil pct 0.2 % [facility] Comment: Interpretive Data Percent cell count reference ranges are not reported, since discordance with absolute values may lead to misinterpretation of CBC data. Current Interpretive Data was last revised on 2017. Blood 07/23/2024 2:13 PM RECYCLE WORKER 07/23/2024 2:59 PM RECYCLE WORKER us Ilda Albert MD LAB BLOOD ORDERABLES Final Result [facility] [address] [facility] Department [place] [address] * (ABNORMAL) CBC with auto differential (07/23/2024 2:13 PM RECYCLE WORKER) Pathologist [facility] WBC 4.8 3.8 - 9.9 K/cumm Hgb 14.4 11.9 - 15.5 g/dL [facility] Hct 44.4 35.6 - 45.5 % [facility] Plt 100(L) 150 - 400 K/cumm [facility] MPV 12.3 9.1 - 12.3 fL [facility] RBC 4.86 3.90 - 5.20 M/cumm [facility] MCV 91.4 81.3 - 96.4 fL [facility] MCH 29.6 27.1 - 33.3 pg [facility] MCHC 32.4 32.3 - 35.7 g/dL [facility] RDW CV 12.2 11.1 - 14.9 % [facility] RDW SD 41.0 35.7 - 48.1 fL [facility] NRBC abs 0.00 0.00 - 0.01 K/cumm [facility] Blood 07/23/2024 2:13 PM RECYCLE WORKER 07/23/2024 2:59 PM RECYCLE WORKER Ilda Albert MD LAB BLOOD ORDERABLES Final Result [facility] [address] [facility] Department [place] [address] * (ABNORMAL) Basic metabolic panel (07/23/2024 2:13 PM RECYCLE WORKER) Sodium 136 135 - 145 mmol/L Potassium, pl 4.3 3.3 - 4.9 mmol/L [facility] Comment:Delta - Results Revi ewed Chloride 100 97 - 110 mmol/L [facility] CO2 22 22 - 32 mmol/L [facility] Anion gap 14 2 - 15 mmol/L [facility] BUN 22 6 - 25 mg/dL [facility] Creatinine 1.14(H) 0.60 - 1.10 mg/dL [facility] Glucose 189 70 - 199 mg/dL [facility] Comment: Delta - Results Reviewed Interpretive Data Fasting glucose >/= 126 mg/dl is diagnostic for diabetes. Fasting is defined as no caloric intake for at least 8 hours. Fasting glucose between 100 mg/dl to 125 mg/dl is diagnostic of prediabetes. In a patient with classic symptoms of hyperglycemia or hyperglycemic crisis, a random glucose >/= 200 mg/dl is diagnostic for diabetes. In the absence of unequivocal hyperglycemia, results should be confirmed by repeat testing. The classification and Diagnosis of Diabetes Diabetes Care 202; 46: S19-S40. Current interpretive data was last revised 2022. Calcium 9.0 8.5 - 10.3 mg/dL [facility] Blood 07/23/2024 2:13 PM RECYCLE WORKER 07/23/2024 2:59 PM RECYCLE WORKER us Ilda Albert MD LAB BLOOD ORDERABLES Final Result [facility] [address] [facility] Department [place] [address] * MRI Brain Epilepsy W WO Contrast (07/23/2024 11:47 AM RECYCLE WORKER) Anatomical Region Laterality Modality Head and Neck N/A Magnetic Resonan ce 07/23/2024 11:5 5 AM RECYCLE WORKER Narrative 07/23/2024 12:02 PM RECYCLE WORKER EXAM DESCRIPTION: MRI BRAIN WITHOUT AND WITH CONTRAST REASON FOR STUDY: Provided history of seizure of unspecified date. No provided focal neurologic deficits. No provided history of trauma or inciting and/or aggravating events. No provided past medical, to include cancer or epilepsy, history. No provided past surgical history. TECHNIQUE: Multiplanar imaging includes noncontrast T1, T2, FLAIR, diffusion with ADC map and post contrast T1 sequences. Additional sequence(s) sensitive to blood products. Images stored on PACS. MR plant health care technician reports patient with involuntary tremors causing motion artifact. Patient motion artifact variably spanning multiple sequences compromises evaluation. CONTRAST TYPE/DOSE: 15 mL Dotarem injected via peripheral IV site without reported incident. COMPARISON: CT head without contrast 07/21/2024. FINDINGS: CEREBRUM: No acute intra-axial hemorrhage. No edema, mass effect, midline shift, or herniation. No abnormal enhancement. WHITE MATTER: Within limitations of patient motion artifact, slight widely scattered punctate to tiny periventricular-subcortical T2/FLAIR hyperintense white matter disease, nonspecific, though can be seen secondary to chronic microvascular ischemia. POSTERIOR FOSSA: Brainstem and cerebellum are unremarkable. No abnormal enhancement. DIFFUSION IMAGING: No restricted diffusion to suggest acute/subacute ischemia or infarct. EXTRAAXIAL SPACES: No extra-axial fluid collection. No extra-axial mass. No abnormal enhancement. BRAIN VOLUME: Mild-moderate cerebral and mild cerebellar volume loss. PITUITARY: Unremarkable. VASCULATURE: No flow disturbance evident. CALVARIUM: No acute abnormality. Hyperostosis frontalis interna. ORBITS: No acute abnormality. [place] ocular lenses replaced bilaterally. PARANASAL SINUSES AND MASTOIDS: Tiny left maxillary sinus mucous retention cyst. Right mastoid air cells well aerated. Left mastoidectomy changes better evaluated on recent CT imaging. No MR demonstration of fluid in the mastoidectomy bed. OTHER: No other significant finding. IMPRESSION: No acute intracranial process with chronic findings as above. THIS IS AN ELECTRONICALLY VERIFIED FINAL REPORT 07/23/2024 12:02 PM - Electronically signed by Puma Castro M.D. JAMESON T: Report ID: [id number] Reading Location: [id number] Procedure Note Puma Castro MD - 07/23/2024 EXAM DESCRIPTION: MRI BRAIN WITHOUT AND WITH CONTRAST REASON FOR STUDY: Provided history of seizure of unspecified date. No provided focal neurologic deficits. No provided history of trauma orinciting and/or aggravating events. No provided past medical, to include cancer or epilepsy, history. No provided past surgical history. TECHNIQUE: Multiplanar imaging includes noncontrast T1, T2, FLAIR,diffusion with ADC map and post contrast T1 sequences. Additional sequence(s)sensitive to blood products. Images stored on PACS. MR plant health care technician reports patientwith involuntary tremors causing motion artifact. Patient motion artifactvariably spanning multiple sequences compromises evaluation. CONTRAST TYPE/DOSE: 15 mL Dotarem injected via peripheral IV sitewithout reported incident. COMPARISON: CT head without contrast 07/21/2024. FINDINGS: CEREBRUM: No acute intra-axial hemorrhage. No edema, masseffect, midline shift, or herniation. No abnormal enhancement. WHITE MATTER: Within limitations of patient motion artifact, slightwidely scattered punctate to tiny periventricular-subcortical T2/FLAIR hyperintense white matter disease, nonspecific, though can be seensecondary to chronic microvascular ischemia. POSTERIOR FOSSA: Brainstem and cerebellum are unremarkable. No abnormal enhancement. DIFFUSION IMAGING: No restricted diffusion to suggest acute/subacute ischemia or infarct. EXTRAAXIAL SPACES: No extra-axial fluid collection. No extra-axialmass. No abnormal enhancement. BRAIN VOLUME: Mild-moderate cerebral and mild cerebellar volume loss. PITUITARY: Unremarkable. VASCULATURE: No flow disturbance evident. CALVARIUM: No acute abnormality. Hyperostosis frontalis interna. ORBITS: No acute abnormality. [place] ocular lenses replaced bilaterally. PARANASAL SINUSES AND MASTOIDS: Tiny left maxillary sinus mucousretention cyst. Right mastoid air cells well aerated. Left mastoidectomy changes better evaluated on recent CT imaging. No MR demonstration of fluid inthe mastoidectomy bed. OTHER: No other significant finding. IMPRESSION: No acute intracranial process with chronic findings asabove. THIS IS AN ELECTRONICALLY VERIFIED FINAL REPORT 07/23/2024 12:02 PM - Electronically signed by Puma Castro M.D. JAMESON T: Report ID: [id number] Reading Location: [id number] us Aly Westbrook MD IMG MRI PROCEDURES Fi nal Result * eGFR (07/22/2024 4:47 AM RECYCLE WORKER) eGFR 69 >=60 mL/min/1. 73 m2 Comment: Interpretive Data Reference Interval Normal >/= 90 mL/min/1.73m2 Mildly decreased* 60 - 89 mL/min/1.73m2 Mildly to moderately decreased 45 - 59 mL/min/1.73m2 Moderately to severely decreased 30 - 44 mL/min/1.73m2 Severely decreased 15 - 29 mL/min/1.73m2 Kidney Failure < 15 mL/min/1.73m2 *Relative to young adult level Estimated glomerular filtration rate is determined by the 2020 CKD-EPI equation recommended by the National Kidney Foundation (A Unifying Approach to GFR Estimation: Recommendations of the NKF-ASK Task Force on Reassessing the Inclusion of Race in Diagnosing Kidney Disease, JASN 2020). The CKD-EPI equation should not be used for patients with unstable renal function and has not been validated in children and those over 70. Current interpretive data was last reviewed 2021. Blood 07/22/2024 4:47 AM RECYCLE WORKER 07/22/2024 5:15 AM RECYCLE WORKER us Jaren Rosenberg MD LAB BLOOD ORDERABLES Final Result [id number] Department of Laboratories [place], [place] [id number] * (ABNORMAL) CBC without differential (07/22/2024 4:47 AM RECYCLE WORKER) [facility] WBC 6.4 3.8 - 9.9 K/cumm Hgb 13.6 11.9 - 15.5 g/dL [facility] Hct 40.3 35.6 - 45.5 % [facility] Plt 100(L) 150 - 400 K/cumm [facility] MPV 12.2 9.1 - 12.3 fL [facility] RBC 4.45 3.90 - 5.20 M/cumm [facility] MCV 90.6 81.3 - 96.4 fL [facility] MCH 30.6 27.1 - 33.3 pg [facility] MCHC 33.7 32.3 - 35.7 g/dL [facility] RDW CV 12.5 11.1 - 14.9 % [facility] RDW SD 41.5 35.7 - 48.1 fL [facility] NRBC abs 0.00 0.00 - 0.01 K/cumm [facility] Blood 07/22/2024 4:47 AM RECYCLE WORKER 07/22/2024 5:15 AM RECYCLE WORKER us Jaren Rosenberg MD LAB BLOOD ORDERABLES Final Result Performing Organization Address [facility] Co de Phone Number [address] [place] [address] * Magnesium (07/22/2024 4:47 AM RECYCLE WORKER) [facility] Magnesium 1.7 1.4 - 2.5 mg/dL Blood 07/22/2024 4:47 AM RECYCLE WORKER 07/22/2024 5:15 AM RECYCLE WORKER us Ilda Albert MD LAB BLOOD ORDERABLES Final Result Performing Organization Address [facility]/ZIP Co de Phone Number [address] [place] [address] * (ABNORMAL) Basic metabolic panel (07/22/2024 4:47 AM RECYCLE WORKER) [facility] Sodium 139 135 - 145 mmol/L Potassium, pl 3.2(L) 3.3 - 4.9 mmol/L [facility] Chloride 101 97 - 110 mmol/L [facility] CO2 28 22 - 32 mmol/L [facility] Anion gap 10 2 - 15 mmol/L [facility] BUN 13 6 - 25 mg/dL [facility] Creatinine 0.94 0.60 - 1.10 mg/dL [facility] Glucose 75 70 - 199 mg/dL [facility] Comment: Interpretive Data Fasting glucose >/= 126 mg/dl is diagnostic for diabetes. Fasting is defined as no caloric intake for at least 8 hours. Fasting glucose between 100 mg/dl to 125 mg/dl is diagnostic of prediabetes. In a patient with classic symptoms of hyperglycemia or hyperglycemic crisis, a random glucose >/= 200 mg/dl is diagnostic for diabetes. In the absence of unequivocal hyperglycemia, results should be confirmed by repeat testing. The classification and Diagnosis of Diabetes Diabetes Care 202; 46: S19-S40. Current interpretive data was last revised 2022. Calcium 9.1 8.5 - 10.3 mg/dL [facility] Blood 07/22/2024 4:47 AM RECYCLE WORKER 07/22/2024 5:15 AM RECYCLE WORKER us Jaren Rosenberg MD LAB BLOOD ORDERABLES Final Result [facility] [address] Department [place] [address] * HIV 1/2 Antibody plus p24 Antigen Blood (07/21/2024 8:00 PM RECYCLE WORKER) HIV 1/2 ab + p24 ag Nonreactive Nonreactive Comment:Nonreactive for HIV- 1 antigen and HIV-1/HIV-2 antibodies. No laboratory evidence of HIV infection. If acute HIV infection is suspected, consider testing for HIV-1 RNA. Current interpretive data was last revised on 22. Blood 07/21/2024 8:00 PM RECYCLE WORKER 07/21/2024 8:08 PM RECYCLE WORKER Aly Westbrook MD LAB MICROBIOLOGY - GE NERAL ORDERABLES Final Result Performing Organization Address [facility] Co de Phone Number DEEDEE [address] [address] * (ABNORMAL) Methylmalonic acid, serum (07/21/2024 8:00 PM RECYCLE WORKER) MMA 0.49(H) <=0.40 nmol/mL [facility] Comment: In this sample, the concentration of methylmalonic acid (MMA) was minimally elevated. As the upper limit of the reference range varies in different laboratories from 0.4 to 0.6 nmol/mL. This finding could be considered normal, especially if the patient does not show other signs of vitamin B12 deficiency. ADDITIONAL INFORMATION This test was developed and its performance characteristics determined by [facility] in a manner consistent with CLIA requirements. This test has not been cleared or approved by the U.S. Food and Drug Administration. Test Performed by: [place] [address] Cool Roofing Installer: Fazal Zavaleta Ph.D.; CLIA# [id number] Blood 07/21/2024 8:00 PM RECYCLE WORKER 07/21/2024 8:08 PM RECYCLE WORKER Aly Westbrook MD LAB BLOOD ORDERABLES Final Result Performing Organization Address [facility] Co de Phone Number DEEDEE [address] [place] [address] [place] ref [facility] * RPR Blood (07/21/2024 8:00 PM RECYCLE WORKER) RPR Nonreactive Nonreactive Comment:Testing performed by : [facility], [address] [facility] [place]., [address] Blood 07/21/2024 8:00 PM RECYCLE WORKER 07/21/2024 11:43 PM RECYCLE WORKER Aly Westbrook MD LAB MICROBIOLOGY - GE NERAL ORDERABLES Final Result [place] [address] [place] [address] * Homocysteine (07/21/2024 8:00 PM RECYCLE WORKER) Homocysteine 13.4 0.0 - 15.0 mcmol/L Comment:Testing performed by : [facility], [address] [facility] [place]., [address] Blood 07/21/2024 8:00 PM RECYCLE WORKER 07/21/2024 11:43 PM RECYCLE WORKER Aly Westbrook MD LAB BLOOD ORDERABLES Final Result Performing Organization Address City/[facility]/ZIP Co de Phone Number [address] [place] [address] * Folate (07/21/2024 8:00 PM RECYCLE WORKER) Folic acid 13.4 >=5.0 ng/mL Blood 07/21/2024 8:00 PM RECYCLE WORKER 07/21/2024 8:08 PM RECYCLE WORKER Aly Westbrook MD LAB BLOOD ORDERABLES Final Result [address] [place] [address] * Vitamin B12 (07/21/2024 8:00 PM RECYCLE WORKER) Vitamin B12 437 230 - 1,250 pg/mL Blood 07/21/2024 8:00 PM RECYCLE WORKER 07/21/2024 8:08 PM RECYCLE WORKER Aly Westbrook MD LAB BLOOD ORDERABLES Final Result [address] [place] [address] * Troponin T high-sensitivity 2-hour (07/21/2024 1:58 PM RECYCLE WORKER) Trop T hs <6 <=14 ng/L Comment: Interpretive Data For further hscTnT resources including the diagnostic algorithm and an aid in interpretation, copy and paste this link: https://nrl.testcatalog.org/show/[email or web address] Current Interpretive Data last revised 2020. Trop T hs delta 0 ng/L [place] Trop T hs interp Insignificant [facility] Blood 07/21/2024 1:58 PM RECYCLE WORKER 07/21/2024 2:10 PM RECYCLE WORKER us Samer Katya Moncada DO LAB BLOOD ORDERABLES F inal Result [id number] [place] [address] * CT Head WO Contrast (07/21/2024 1:05 PM RECYCLE WORKER) Anatomical Region Laterality Modality Head and Neck N/A Computed Tomogra phy 07/21/2024 1:36 PM RECYCLE WORKER Narrative 07/21/2024 1:40 PM RECYCLE WORKER EXAM DESCRIPTION: CT HEAD WO CONTRAST REASON FOR STUDY: Acute altered mental status and dizziness in a patient reporting decreased oral intake. No provided focal neurologic deficits. No provided history of trauma. No provided past medical or surgical history. TECHNIQUE: Axial images acquired through the brain without intravenous contrast. Images stored on PACS. Automated exposure control was used as a dose optimization technique for this examination. COMPARISON: No prior relevant imaging available at time of interpretation. FINDINGS: BRAIN: No acute intra-axial hemorrhage. No edema, mass effect, midline shift, or herniation. No evidence of acute territorial ischemia/infarct. No suspicious focal white matter lesions with preservation of the hanley-white junction. EXTRA-AXIAL SPACES: No extra-axial fluid collection. No unenhanced CT evidence of extra-axial mass. Mild cerebral greater than cerebellar volume loss. CALVARIUM: Diffuse osteopenia. No acute calvarial fracture. Hyperostosis frontalis interna. SINUSES/MASTOIDS: Visualized paranasal sinuses clear. Right mastoid air cells well-developed and well aerated. Postsurgical changes of canal wall up (closed) left mastoidectomy with clear mastoidectomy bed. ORBITS: No acute abnormality. [place] ocular lenses replaced bilaterally. OTHER: No other significant abnormality. IMPRESSION: No acute intracranial process. THIS IS AN ELECTRONICALLY VERIFIED FINAL REPORT 07/21/2024 1:40 PM - Electronically signed by Puma BARBA T: Report ID: [id number] Reading Location: [id number] Procedure Note Puma Castro MD - 07/21/2024 EXAM DESCRIPTION: CT HEAD WO CONTRAST REASON FOR STUDY: Acute altered mental status and dizziness in a patient reporting decreased oral intake. No provided focal neurologic deficits.No provided history of trauma. No provided past medical or surgical history. TECHNIQUE: Axial images acquired through the brain without intravenous contrast. Images stored on PACS. Automated exposure control was used asa dose optimization technique for this examination. COMPARISON: No prior relevant imaging available at time of interpretation. FINDINGS: BRAIN: No acute intra-axial hemorrhage. No edema, masseffect, midline shift, or herniation. No evidence of acute territorial ischemia/infarct. No suspicious focal white matter lesions with preservation of the hanley-white junction. EXTRA-AXIAL SPACES: No extra-axial fluid collection. No unenhanced CT evidence of extra-axial mass. Mild cerebral greater than cerebellarvolume loss. CALVARIUM: Diffuse osteopenia. No acute calvarial fracture.Hyperostosis frontalis interna. SINUSES/MASTOIDS: Visualized paranasal sinuses clear. Right mastoid air cells well-developed and well aerated. Postsurgical changes of canal wallup (closed) left mastoidectomy with clear mastoidectomy bed. ORBITS: No acute abnormality. [place] ocular lenses replacedbilaterally. OTHER: No other significant abnormality. IMPRESSION: No acute intracranial process. THIS IS AN ELECTRONICALLY VERIFIED FINAL REPORT 07/21/2024 1:40 PM - Electronically signed by Puma BARBA T: Report ID: [id number] Reading Location: [place] [address] Mark Moncada DO IMG CT PROCEDURES Lou l Result * Urinalysis reflex to microscopic and culture Urine (07/21/2024 12:47 PM RECYCLE WORKER) Color, ur Yellow Yellow Clarity, ur Clear Clear [facility] Specific gravity, ur 1.010 1.003 - 1.030 [facility] pH, urine 7.0 [facility] Comment: Interpretive Data U rine pH is affected by diet, medications, systemic acid-base disturbances, and renal tubular function. pH may affect urinary stone formation. For example, urine pH below 6.0 may help reduce the tendency for calcium phosphate stones and pH greater than 6.0 may reduce the tendency for uric acid stone formation. Source: [facility] Current Interpretive Data was last revised on 2017 Protein, ur ql Negative Negative [facility] Glucose, ur ql Negative Negative [facility] Ketones, ur Negative Negative [facility] Bilirubin, ur Negative Negative [facility] Blood, ur Negative Negative [facility] Urobilinogen, ur <2.0 <2.0 mg/dL [facility] Nitrite, ur Negative Negative [facility] Leukocyte esterase, ur Negative Negative [facility] UA reflex comment Reflex conditions for microscopic UA and culture not met. [facility] Urine 07/21/2024 12:4 7 PM RECYCLE WORKER 07/21/2024 12:53 PM RECYCLE WORKER Mark Moncada DO LAB MICROBIOLOGY - GEN ERAL ORDERABLES Final Result [facility] [address] Department [place] [address] * Troponin T high-sensitivity series (baseline, 2hr, 4hr, 6hr) (07/21/2024 12:00 PM RECYCLE WORKER) Trop T hs <6 <=14 ng/L Comment: Interpretive Data For further hscTnT resources including the diagnostic algorithm and an aid in interpretation, copy and paste this link: https://nrl.testcatalog.org/show/hsTrop Current Interpretive Data last revised 2020. Blood 07/21/2024 12:0 0 PM RECYCLE WORKER 07/21/2024 12:03 PM RECYCLE WORKER Samer Katya Moncada DO LAB BLOOD ORDERABLES F inal Result [place] [address] [address] * eGFR (07/21/2024 12:00 PM RECYCLE WORKER) eGFR 69 >=60 mL/min/1. 73 m2 Comment: Interpretive Data Reference Interval Normal >/= 90 mL/min/1.73m2 Mildly decreased* 60 - 89 mL/min/1.73m2 Mildly to moderately decreased 45 - 59 mL/min/1.73m2 Moderately to severely decreased 30 - 44 mL/min/1.73m2 Severely decreased 15 - 29 mL/min/1.73m2 Kidney Failure < 15 mL/min/1.73m2 *Relative to young adult level Estimated glomerular filtration rate is determined by the 2020 CKD-EPI equation recommended by the National Kidney Foundation (A Unifying Approach to GFR Estimation: Recommendations of the NKF-ASK Task Force on Reassessing the Inclusion of Race in Diagnosing Kidney Disease, JASN 2020). The CKD-EPI equation should not be used for patients with unstable renal function and has not been validated in children and those over 70. Current interpretive data was last reviewed 2021. Blood 07/21/2024 12:0 0 PM RECYCLE WORKER 07/21/2024 12:03 PM RECYCLE WORKER us Samer Katya Moncada DO LAB BLOOD ORDERABLES F inal Result [facility] [address] [place] [address] * Differential, auto (07/21/2024 12:00 PM RECYCLE WORKER) Neutrophil abs 2.7 1.5 - 6.5 K/cumm Imm gran abs 0.0 0.0 - 0.1 K/cumm [facility] Lymphocyte abs 2.8 0.8 - 3.3 K/cumm [facility] Monocyte abs 0.7 0.2 - 0.8 K/cumm [facility] Eosinophil abs 0.4 0.0 - 0.5 K/cumm [facility] Basophil abs 0.0 0.0 - 0.1 K/cumm [facility] Neutrophil pct 40.5 % [facility] Comment: Interpretive Data Percent cell count reference ranges are not reported, since discordance with absolute values may lead to misinterpretation of CBC data. Current Interpretive Data was last revised on 2017. Imm gran pct 0.3 % [facility] Comment: Interpretive Data Percent cell count reference ranges are not reported, since discordance with absolute values may lead to misinterpretation of CBC data. Current Interpretive Data was last revised on 2017. Lymphocyte pct 42.1 % [facility] Comment: Interpretive Data Percent cell count reference ranges are not reported, since discordance with absolute values may lead to misinterpretation of CBC data. Current Interpretive Data was last revised on 2017. Monocyte pct 10.0 % [facility] Comment: Interpretive Data Percent cell count reference ranges are not reported, since discordance with absolute values may lead to misinterpretation of CBC data. Current Interpretive Data was last revised on 2017. Eosinophil pct 6.5 % [facility] Comment: Interpretive Data Percent cell count reference ranges are not reported, since discordance with absolute values may lead to misinterpretation of CBC data. Current Interpretive Data was last revised on 2017. Basophil pct 0.6 % [facility] Comment: Interpretive Data Percent cell count reference ranges are not reported, since discordance with absolute values may lead to misinterpretation of CBC data. Current Interpretive Data was last revised on 2017. Blood 07/21/2024 12:0 0 PM RECYCLE WORKER 07/21/2024 12:03 PM RECYCLE WORKER us Kaylar Katya Moncada DO LAB BLOOD ORDERABLES F inal Result [facility] [place] [address] [place] [id number] * (ABNORMAL) CBC with auto differential (07/21/2024 12:00 PM RECYCLE WORKER) [facility] WBC 6.6 3.8 - 9.9 K/cumm Hgb 15.4 11.9 - 15.5 g/dL [facility] Hct 46.2(H) 35.6 - 45.5 % [facility] Plt 125(L) 150 - 400 K/cumm [facility] MPV 12.4(H) 9.1 - 12.3 fL [facility] RBC 5.07 3.90 - 5.20 M/cumm [facility] MCV 91.1 81.3 - 96.4 fL [facility] MCH 30.4 27.1 - 33.3 pg [facility] MCHC 33.3 32.3 - 35.7 g/dL [facility] RDW CV 12.5 11.1 - 14.9 % [facility] RDW SD 41.8 35.7 - 48.1 fL [facility] NRBC abs 0.00 0.00 - 0.01 K/cumm [facility] Blood 07/21/2024 12:0 0 PM RECYCLE WORKER 07/21/2024 12:03 PM RECYCLE WORKER Mark Moncada DO LAB BLOOD ORDERABLES F inal Result Performing Organization Address [facility] Co de Phone Number [address] [address] * TSH (07/21/2024 12:00 PM RECYCLE WORKER) [facility] Thyroid Stimulating Hormone 3.76 0.30 - 4.20 mcIUnit/mL Blood 07/21/2024 12:0 0 PM RECYCLE WORKER 07/21/2024 12:03 PM RECYCLE WORKER Mark Moncada DO LAB BLOOD ORDERABLES F inal Result [address] [address] * (ABNORMAL) Valproic acid level, total (07/21/2024 12:00 PM RECYCLE WORKER) Pathologist [facility] Valproic Acid 127.0(H) 50.0 - 100.0 mcg/mL Blood 07/21/2024 12:0 0 PM RECYCLE WORKER 07/21/2024 12:03 PM RECYCLE WORKER us Samer Katya Moncada DO LAB BLOOD ORDERABLES F inal Result [facility] [address] Department [place] [address] * (ABNORMAL) Comprehensive metabolic panel (07/21/2024 12:00 PM RECYCLE WORKER) Pathologist [facility] Sodium 140 135 - 145 mmol/L Potassium, pl 4.1 3.3 - 4.9 mmol/L [facility] Chloride 100 97 - 110 mmol/L [facility] CO2 25 22 - 32 mmol/L [facility] Anion gap 15 2 - 15 mmol/L [facility] BUN 13 6 - 25 mg/dL [facility] Creatinine 0.94 0.60 - 1.10 mg/dL [facility] Glucose 73 70 - 199 mg/dL [facility] Comment: Interpretive Data Fasting glucose >/= 126 mg/dl is diagnostic for diabetes. Fasting is defined as no caloric intake for at least 8 hours. Fasting glucose between 100 mg/dl to 125 mg/dl is diagnostic of prediabetes. In a patient with classic symptoms of hyperglycemia or hyperglycemic crisis, a random glucose >/= 200 mg/dl is diagnostic for diabetes. In the absence of unequivocal hyperglycemia, results should be confirmed by repeat testing. The classification and Diagnosis of Diabetes Diabetes Care 2021; 46: S19-S40. Current interpretive data was last revised 2022. Calcium 8.6 8.5 - 10.3 mg/dL [facility] Bilirubin, total 0.3 0.1 - 1.2 mg/dL [facility] Protein, pl 5.9(L) 6.5 - 8.5 g/dL [facility] Albumin 3.7 3.5 - 5.0 g/dL [facility] Alk phos 80 40 - 130 Units/L [facility] ALT <5(L) 7 - 45 Units/L [facility] AST 22 10 - 45 Units/L [facility] Blood 07/21/2024 12:0 0 PM RECYCLE WORKER 07/21/2024 12:03 PM RECYCLE WORKER us Samer Amandafidel Coral LAB BLOOD ORDERABLES F inal Result DEEDEE VELÁSQUEZ [address] Department [place] [address] * XR Chest 1 Vw Portable (07/21/2024 11:47 AM RECYCLE WORKER) Anatomical Region Laterality Modality Body, Chest N/A Computed Radiogr aphy 07/21/2024 12:1 4 PM RECYCLE WORKER Narrative 07/21/2024 12:15 PM RECYCLE WORKER EXAM DESCRIPTION: XR CHEST 1 VIEW REASON FOR STUDY: weakness Pt [place]EMS [place] [employer] with c/o AMS. Pt was driving erratically and PD was called and she was found to be altered while parked at [email or web address]. Pt reports that she has been feeling weak and dizzy and decreased po intake. Pt is currently AOx3, disoriented to year, skin pwd, resp even and non labored. TECHNIQUE: Single frontal radiographic view(s) of the chest. COMPARISON: None FINDINGS: There is cardiomegaly. Calcified mediastinal lymph nodes are noted. The pulmonary vasculature and mediastinum are grossly unremarkable. There is no definite evidence of a pneumothorax. There is no definite evidence of a pleural effusion. There are mild patchy right basilar airspace opacities. There are degenerative changes of the spine. IMPRESSION: Mild patchy right basilar airspace opacities, which is likely related to subsegmental atelectasis/scarring and less likely developing airspace disease. Cardiomegaly. THIS IS AN ELECTRONICALLY VERIFIED FINAL REPORT 07/21/2024 12:15 PM - Electronically signed by Willie Bran D.O. PS T: Report ID: [id number] Reading Location: [place] [address] Procedure Note Willie Bran, - 07/21/2024 EXAM DESCRIPTION: XR CHEST 1 VIEW REASON FOR STUDY: weakness Pt BIBEMS from [place] with c/o AMS. Pt was driving erratically and PDwas called and she was found to be altered while parked at [place]. Ptreports that she has been feeling weak and dizzy and decreased po intake. Pt is currently AOx3, disoriented to year, skin pwd, resp even and non labored. TECHNIQUE: Single frontal radiographic view(s) of the chest. COMPARISON: None FINDINGS: There is cardiomegaly. Calcified mediastinal lymph nodes arenoted. The pulmonary vasculature and mediastinum are grossly unremarkable.There is no definite evidence of a pneumothorax. There is no definite evidence ofa pleural effusion. There are mild patchy right basilar airspace opacities. There are degenerative changes of the spine. IMPRESSION: Mild patchy right basilar airspace opacities, which is likely related to subsegmental atelectasis/scarring and less likely developing airspacedisease. Cardiomegaly. THIS IS AN ELECTRONICALLY VERIFIED FINAL REPORT 07/21/2024 12:15 PM - Electronically signed by Willie Bran D.O. PS T: Report ID: [id number] Reading Location: [place] [address] us Samer Katya Moncada DO IMG XR PROCEDURES Lou l Result * ECG 12 lead (07/21/2024 11:15 AM RECYCLE WORKER) Ventricular Rate EKG/Min 47 BPM [facility] Atrial Rate 47 BPM [facility] SC-Interval (MSEC) 248 ms [facility] QRS-Interval (MSEC) 108 ms [facility] QT-Interval (MSEC) 476 ms [facility] QTc 421 ms [facility] P [place] 48 degrees [facility] R [place] 29 degrees [facility] T [place] 19 degrees [facility] Diagnosis Sinus bradycardia with 1st degree A-V block Borderline ECG When compared with ECG of 29-SEP-2021 12:39, SC interval has increased Confirmed by BALJEET GOMEZ M.D. ([id number]) on 07/21/2024 8:39:21 PM [facility] 07/21/2024 11:1 5 AM RECYCLE WORKER 07/21/2024 8:39 PM RECYCLE WORKER Mark Moncada DO ECG ORDERABLES Final Result [facility] * Screening Mammogram Bilateral W Evangelist (07/03/2024 11:19 AM RECYCLE WORKER) Anatomical Region Laterality Modality Breast Bilateral Mammography Impressions 07/13/2024 11:16 AM RECYCLE WORKER BI-RADS ATLAS category (overall): 1 - Negative There is no mammographic evidence of malignancy. A 1 year screening mammogram is recommended. The patient has been or will be contacted. We recommend annual screening mammography for women at average risk of breast cancer beginning at age 40, based on guidelines of the [employer] [place] [employer] (ACR Practice Parameter for the Performance of Screening and Diagnostic Mammography) and [place] [employer]. For women with and elevated risk of breast cancer, please refer to the ACR Practice Parameter for specific screening recommendations. The patient will be entered into a reminder system with a target due date of 1 year for her next screening exam. Narrative 07/13/2024 11:16 AM RECYCLE WORKER Screening Mammogram Bilateral W Evangelist: 07/03/24 The study was acquired using full field digital technology and interpreted from soft copy. 2D digital mammographic views, as well as 3D digital tomosynthesis were performed in the CC and MLO projections. This study was resulted using Computer-Aided Detection (CAD). CLINICAL: Screening mammogram, encounter for. No relevant medical history has been documented for this patient. No known family history of breast cancer. COMPARISONS: 12/01/2020 Breast Imaging Screening Outside Reference 07/21/2018 Breast Imaging Screening Outside Reference BREAST TISSUE: There are scattered areas of fibroglandular density. FINDINGS: No suspicious masses, suspicious calcifications, or other suspicious findings are seen within either breast. There has been no suspicious change. Self Screening Mammogram IMG MAMMO PROCEDURES Fi nal Result from Last 3 Months Insurance [facility] Advance Directives For more information, please contact: [phone] * Full Code (Latest Code Status on File) Date Activated Date Inactivated Comments 07/21/2024 8:01 PM 07/23/2024 9:55 PM Care Teams Vocational Nurse Relationship Specialty Start Date End Date Selena Ramos MD PCP - General Family Medicine 12/30/18 Jonah Infante MD [address] [place] [address] Referring Physician Neurology 07/23/24
--- OUTSIDE RECORDS SUMMARY | 2024-08-25 13:13 | XMS_ITS | Clinical Summary ---
Author Organization [facility] Address [facility] [place] [address] Care Team Providers Care Core Blower Name Role Phone Selena Sanford MD Primary Care Provider Allergies Active Allergy Reactions Criticality Noted Date Comments Fluoxetine Headache 01/08/2013 Medications albuterol sulfate HFA (PROAIR HFA) 108 (90 Base) MCG/ACT inhaler Inhale 1 puff into the lungs every 4 (four) hours as needed. 01/08/2013 Active ranitidine 150 MG tablet Take 150 mg by mouth 2 (two) times daily. 5 10/07/2018 Active metoprolol tartrate 25 MG tablet Take 25 mg by mouth every 12 (twelve) hours. 3 01/02/2019 Active divalproex EC 500 MG tablet TAKE 2 TABLETS EVERY MORNING AND TAKE 3 TABLETS EVERY EVENING 07/29/2019 Active famotidine 20 MG tablet Take 20 mg by mouth 2 (two) times daily as needed. 09/02/2019 Active meclizine 12.5 MG tablet 05/21/2019 Active venlafaxine XR 75 MG 24 hr capsule TAKE 3 CAPSULES BY MOUTH EVERY DAY 08/17/2019 Active Active Problems Problem Noted Date Diagnosed Date Arthritis 09/10/2019 Environmental and seasonal allergies 04/09/2019 SOB (shortness of breath) 03/22/2015 Bronchitis 03/17/2015 Seizures ([facility]) 03/17/2015 Viral hepatitis A 03/17/2015 Vitamin D insufficiency 06/07/2014 Generalized osteoarthritis of multiple sites Anxiety 01/08/2013 Asthma ([facility]) 01/08/2013 Overview (11/19/2018): Description: Dr. Butler Epilepsy ([facility]) 01/08/2013 High blood cholesterol 01/08/2013 Sleep apnea 01/08/2013 Overview (09/10/2019): Description: CPAP Resolved Problems Problem Noted Date Diagnosed Date Resolved Date Encounter for preventive health examination 09/09/2012 01/29/2020 Family History Medical History Relation Comments Cancer Brother Cancer Father Alzheimers Mother Diabetes Mother Heart Mother Relation Status Comments Brother Father Mother Social History Tobacco Use Types Packs/Day Years Used Date Smoking Tobacco: Never Smokeless Tobacco: Never Alcohol Use Standard Drinks/Week Comments Yes 0 (1 standard drink = 0.6 oz pur e alcohol) AUDIT-C Answer Date Recorded Frequency of Alcohol Consumption Monthly or less 04/09/2019 Average Number of Drinks Not on file 019 Frequency of Binge Drinking Not on file 03/21 Comments Unknown Sex and Gender Information Value Date Recorded Sex Assigned at Not on file Legal Sex Female 5:00 PM CDT Gender Identity Not on file Sexual Orientation Not on file Last Filed Vital Signs Vital Sign Reading Time Taken Comments Blood Pressure 118/72 12/06/2023 5:01 PM CDT Pulse 70 12/06/2023 5:01 PM CDT Temperature 36.5 C (97.7 F) 12/06/2023 2:34 PM CDT Respiratory Rate 18 12/06/2023 5:01 PM CDT Oxygen Saturation 99% 12/06/2023 5:01 PM CDT Inhaled Oxygen Concentration - - Weight 88.5 kg (195 lb) 12/06/2023 2:34 PM CDT Height 170.2 cm (5' 7 ) 12/06/2023 2:34 PM CDT Body Mass Index 30.54 12/06/2023 2:34 PM CDT Plan of Treatment Health Maintenance Due Date Last Done Comments Annual Physical 1965 Hepatitis C 1980 Cervical Cancer Screening Pa p with HPV Testing (Age 30 to 64) Every 5 Years 1992 Zoster Vaccines (1 of 2) 2012 Pneumococcal Vaccine: Pediatrics (0 to 5 Years) and At-Risk Patients (6 to 64 Years) (2 of 2 - PCV) 10/28/2014 10/28/2013 Mammogram Screening 09/05/2015 09/04/2013 Cervical Cancer Screening Pa p Smear (Age 30 to 64) Every 3 Years 07/09/2016 07/09/2013 Cervical Cancer Screening wi th HPV 07/09/2016 RSV Immunization or 60+ Years (1 - Risk 60-74 years 1-dose series) 2022 Colorectal Cancer Screening Colonoscopy (10 Years) 08/21/2023 08/20/2013 COVID-19 Vaccine (4 - 2023-2 5 season) 2024 07/14/2021, 12/24/2020, 12/03/2020 PHQ-2 (Physician [place]) 05/20/2024 DTaP, Tdap and Td Vaccines ( 2 - Td or Tdap) 08/20/2033 08/21/2023, 04/22/2003 Meningococcal B Vaccine Aged Out No l onger eligible based on patient's age to complete this topic Meningococcal Vaccine Aged Out No ronnie shane eligible based on patient's age to complete this topic RSV Immunizations Under 20 Months Aged Out No longer eligible b ased on patient's age to complete this topic Procedures Procedure Name Priority Date/Time Associated Diagnosis Comments MG SCREENING GAGANDEEP DIGI Routine 09/04/2013 3:01 PM CDT COLONOSCOPY Routine 08/20/2013 12:00 AM CDT CYTOPATH CERV/VAG THIN LAYER Routine 07/09/2013 10:33 AM OVERHEAD CRANE INSPECTOR from Last 3 Months or Most Recently Relevant to Health Maintenance Results * MG SCREENING GAGANDEEP DIGI (09/04/2013 3:01 PM CDT) Anatomical Region Laterality Modality Breast Bilateral Mammography 09/04/2013 3:01 PM CDT 09/04/2013 3:01 PM CDT Narrative 09/04/2013 4:21 PM CDT PAT DAHL ORDERING MD: LUZ MARIA DAHL MD ACCT: [id number] ADMIT/SERVICE DATE: 09/04/13 DISCHARGE DATE: : 1960 PT TYPE: REG CLI SEX: F ORD SITE: [facility] STUDY DATE REPORT # PROCEDURE CODE PROCEDURE 09/04/13 [id number] SCMAMDGB MG SCREEN MAMMO DIGITAL BI EXTORDERID [id number] ACCESSION NUMBER [id number] CHART DOCUMENT IMPRESSION: ASSESSMENT: BI-RADS 1, NEGATIVE. RECOMMENDATION: RECOMMEND YEARLY FOLLOWUP EXAM. HISTORY: A 52-YEAR-OLD WOMAN PRESENTING FOR ROUTINE FOLLOWUP SCREENING MAMMOGRAPHY WITHOUT ANY COMPLAINTS THIS TIME. SCREENING MAMMOGRAM COMPARISON: 02/24/10 TECHNIQUE: CEPHALOCAUDAL AND MEDIOLATERAL OBLIQUE VIEWS OF BOTH BREASTS PERFORMED WITH CAD. FINDINGS: THIS EXAM SHOWS A PREDOMINANTLY FATTY BREAST PARENCHYMAL PATTERN. THERE ARE NO NEW SIGNS OF DOMINANT MASS, ARCHITECTURAL DISTORTION OR MALIGNANT-APPEARING CALCIFICATIONS. DIGITAL MAMMOGRAPHIC VIEWS REVIEWED BY R2 IMAGE CHECK. ELECTRONICALLY SIGNED BY: LUCAS PHAM M.D. 09/04/2013 16:20 LUCAS PHAM M.D. P #[id number] P/MA CC: LUZ MARIA DAHL M.D. Procedure Note Shelbi Henderson MD - 08/07/2018 PAT DAHL ORDERING MD: LUZ MARIA DAHL MD ACCT: [id number] ADMIT/SERVICE DATE: 09/04/13 DISCHARGE DATE: : 1960 PT TYPE: REG CLI SEX: F ORD SITE: [facility] OUTPATNT IMAGING STUDY DATE REPORT # PROCEDURE CODE PROCEDURE 09/04/13 [id number] SCMAMDGB MG SCREEN MAMMO DIGITAL BI EXTORDERID [id number] ACCESSION NUMBER [id number] CHART DOCUMENT IMPRESSION: ASSESSMENT: BI-RADS 1, NEGATIVE. RECOMMENDATION: RECOMMEND YEARLY FOLLOWUP EXAM. HISTORY: A 52-YEAR-OLD WOMAN PRESENTING FOR ROUTINE FOLLOWUP SCREENING MAMMOGRAPHY WITHOUT ANY COMPLAINTS THIS TIME. SCREENING MAMMOGRAM COMPARISON: 02/24/10 TECHNIQUE: CEPHALOCAUDAL AND MEDIOLATERAL OBLIQUE VIEWS OF BOTH BREASTS PERFORMED WITH CAD. FINDINGS: THIS EXAM SHOWS A PREDOMINANTLY FATTY BREAST PARENCHYMAL PATTERN. THERE ARE NO NEW SIGNS OF DOMINANT MASS, ARCHITECTURALDISTORTION OR MALIGNANT-APPEARING CALCIFICATIONS. DIGITAL MAMMOGRAPHIC VIEWS REVIEWED BY R2 IMAGE CHECK. ELECTRONICALLY SIGNED BY: LUCAS PHAM M.D. 09/04/2013 16:20 LUCAS PHAM M.D. P #[id number] P/MA CC: LUZ MARIA DAHL M.D. Luz Maria Dahl MD MAMMO Final Result * Colonoscopy (08/20/2013 12:00 AM CDT) 08/20/2013 08/20/2013 Narrative TOUCHWORKS TO EPIC CONVERSION - 08/20/2013 12:00 AM CDT Documented hx of procedure Procedure Note , Shelbi ConversionMD - 08/07/2018 Documented hx of procedure Generic Conversion Md [facility] PROCEDURE ORDERABLES Final Result TOUCHWORKS TO EPIC CONVERSION * Cytopath Cerv/Vag Thin Layer (07/09/2013 10:33 AM OVERHEAD CRANE INSPECTOR) COMMENT TOUCHWORKS TO EPIC CONVERSION Comment:Result Comment: NEGA TIVE FOR INTRAEPITHELIAL LESION AND MALIGNANCY. STATEMENT OF ADEQUACY: TOUCHWORKS TO EPIC CONVERSION Comment: Result Comment: Satisfactory for evaluation. No endocervical component is identified. PRIMARY DIAGNOSIS: T OUCHWORKS TO EPIC CONVERSION Comment: Result Comment: V70.0 ; Routine general medical examination at health care facility COMMENT TOUCHWORKS TO EPIC CONVERSION Comment:Result Comment: Manoj Garza, Cath Lab Nurse (ASCP) COMMENT . TOUCHWORKS TO EPIC CONVERSION NOTE TOUCHWORKS TO EPIC CONVERSION Comment: Result Comment: The Pap smear is a screening test designed to aid in the detection of premalignant and malignant conditions of the uterine cervix. It is not a diagnostic procedure and should not be used as the sole means of detecting cervical cancer. Both false-positive and false-negative reports do occur. . METHOD TOUCHWORKS TO EPIC CONVERSION Comment: Result Comment: This liquid based ThinPrep(R) pap test was screened with the use of an image guided system. 07/09/2013 10:3 3 AM OVERHEAD CRANE INSPECTOR 07/09/2013 10:33 AM OVERHEAD CRANE INSPECTOR Narrative TOUCHWORKS TO EPIC CONVERSION - 07/10/2013 3:22 AM OVERHEAD CRANE INSPECTOR Result Communication: Call patient with results us Luz Maria Dahl MD PATHOLOGY/CYTOLOGY ORDERABLES Final Result Performing Organization Address City/State/[facility] Co de Phone Number TOUCHWORKS TO EPIC CONVERSION from Last 3 Months or Most Recently Relevant to Health Maintenance Insurance Care Teams Core Blower Relationship Specialty Start Date End Date Selena Sanford MD [address] [place] [address] [facility] - General 11/07/16
--- OUTSIDE RECORDS SUMMARY | 2024-08-25 13:13 | XMS_ITS | Clinical Summary ---
Author Organization [facility] Care Team Providers Care Reinsurance Accountant Name Role Phone Unavailable Primary Care Provider Unavailabl e Social History Tobacco Use Types Packs/Day Years Used Date Smoking Tobacco: Never Assessed Comments Unknown Sex and Gender Information Value Date Recorded Sex Assigned at Not on file Legal Sex Female 1:14 PM DREDGE PIPEMAN Gender Identity Not on file Sexual Orientation Not on file Plan of Treatment Health Maintenance Due Date Last Done Comments Hepatitis C Virus (HCV) Screening 1960 TdaP Immunization 1960 Pap Smear 09/15/1983 Cervical Cancer Screening (CCS) 1992 HPV/Cotest 1992 Colonoscopy 09/15/2007 Colorectal Cancer Screening 09/15/2007 Cologuard 2012 Immunochemical Fecal Occult Blood 2012 Mammogram 2012 Pneumococcal Immunization (50+ years) (1 of 1 - PCV) 2012 Zoster Immunization (1 of 2) 2012 Influenza Immunization (#1) 01/19/202405/20, 05/21/2019, 06/26/2018, Additional history exists SARS-COV-2 Immunization ( season) 2024 12/24/2020, 12/03/2020 Respiratory Syncytial Virus (RSV) Immunization (Adult) (1 - 1-dose 75+ series) 2037 Hepatitis B Immunization Aged Out No longer eligible based on patient's age to complete this topic Meningococcal Immunization (ACWY) Aged Out No longer eligible based on patient's age to complete this topic Pneumococcal Immunization Combined Aged Out No longer eligible based on patient's age to complete this topic Rotavirus Immunization Aged Out No lo nger eligible based on patient's age to complete this topic
--- OUTSIDE RECORDS SUMMARY | 2024-08-25 13:13 | XMS_ITS | Referral Summary ---
Author Organization [facility] [address] Address [address] [place] [address] Care Team Providers Care Sewer Line Photo Inspector Name Role Phone Selena Ramos MD Primary Care Prov ider Jonah Infante MD Unavailable Encounters Date Type Department Care Team Description 07/21/2024 11:01 AM SENIOR ADMINISTRATIVE SUPPORT - 07/23/2024 5:35 PM [facility] [address] [address] Mark Moncada DO Winston, Jared Todd, MD Potluri, Ilda Thomas MD Altered mental status, unspecified altered mental status type (Primary Dx); Hx of seizure disorder; Physical deconditioning; Unsteady gait Discharge Disposition: Discharge to home or self care 07/03/2024 Telephone [facility] Neurology [address] [facility] [address] [place] [phone] Leonardo De Jesus Si, MD 07/03/2024 11:00 AM SENIOR ADMINISTRATIVE SUPPORT - 07/03/2024 11:59 PM [facility] Encounter [facility] [address] [place] [phone] Screening mammogram, encounter for Discharge Disposition: Discharge to home or self care from Last 3 Months Allergies No known active allergies Medications flecainide [...] disorder 07/21/2024 ALEJANDRINA (iron deficiency anemia) 06/25/2023 Immunizations Immunization Administration Dates Next Due COVID-19 mRNA (J-Kan) 0.3 m L (30 mcg) vaccine (12 years and up) 01/17/2024 Social History Tobacco Use Types Packs/Day Years Used Date Smoking Tobacco: Never Smokeless Tobacco: Never [facility] [employer] Medical Productsities Answer Date Recorded In the past 12 months has doo, gas, oil, or water [employer] threatened to shut off services in your home? No 07/22/2024 Social Connection and Isolation Panel [NHANES] A nswer Date Recorded In a typical week, how many times do you talk on the phone with family, friends, or neighbors? Once a week 07/22/2024 How often do you get together with friends or re latives? Once a week 07/22/2024 How often do you attend hinduism or protestant serv ices? Never 07/22/2024 Do you belong to any clubs o r organizations such as hinduism groups, unions, fraternal or athletic groups, or [...] any time in the past 12 m [facility], were you homeless or living in a fci (including now)? No 07/22/2024 Personal Safety Answer Date Recorded Have you ever been in or are you currently in a harmful physical or emotional relationship or is someone making you feel afraid or unsafe? Denies 07/21/2024 Comments No Sex and Gender Information Value Date Recorded Sex Assigned at Not on file Legal Sex Female 7:33 PM SENIOR ADMINISTRATIVE SUPPORT Gender Identity Not on file Sexual Orientation Not on file Last Filed Vital Signs Vital Sign Reading Time Taken Comments Blood Pressure 122/76 07/23/2024 2:45 PM SENIOR ADMINISTRATIVE SUPPORT Pulse 87 07/23/2024 2:45 PM SENIOR ADMINISTRATIVE SUPPORT Temperature 36.6 C (97.9 F) 07/23/2024 2:45 PM SENIOR ADMINISTRATIVE SUPPORT Respiratory Rate 18 07/23/2024 2:45 PM SENIOR ADMINISTRATIVE SUPPORT Oxygen Saturation 94% 07/23/2024 2:45 PM SENIOR ADMINISTRATIVE SUPPORT Inhaled Oxygen Concentration - - Weight 88.4 kg (194 lb 14.2 oz) 07/21/2024 7:45 PM SENIOR ADMINISTRATIVE SUPPORT Height 170.2 cm (5' 7 ) 07/21/2024 7:45 PM SENIOR ADMINISTRATIVE SUPPORT Body Mass Index 30.52 07/21/2024 7:45 PM SENIOR ADMINISTRATIVE SUPPORT Plan of Treatment Not on file Medical Devices Implanted Type Area Beef Cattle Farm Manager Device Identifier Shelf Expiration Date Model / Serial / Lot Pin,Screw Right: Elbow Hardware Right: Hand Procedures Procedure Name Priority Date/Time Associated Diagnosis Comments CANNABINOIDS, URINE, CONFIRMATION Routine 07/23/2024 3:12 PM SENIOR ADMINISTRATIVE SUPPORT BENZODIAZEPINE, URINE, CONFIRMATION Routine 07/23/2024 3:12 PM SENIOR ADMINISTRATIVE SUPPORT DRUG SCREEN, URINE L AND D WITH REFLEX CONFIRMATION Routine 07/23/2024 3:12 PM SENIOR ADMINISTRATIVE SUPPORT EGFR STAT 07/23/2024 2:13 PM SENIOR ADMINISTRATIVE SUPPORT DIFFERENTIAL AUTO STAT 07/23/2024 2:1 3 PM SENIOR ADMINISTRATIVE SUPPORT CBC WITH AUTO DIFFERENTIAL STAT 07/23/2024 2:13 PM SENIOR ADMINISTRATIVE SUPPORT BASIC METABOLIC PANEL STAT 07/23/2024 2:13 PM SENIOR ADMINISTRATIVE SUPPORT MRI BRAIN EPILEPSY W WO CONTRAST IP Routine 07/23/2024 11:47 AM SENIOR ADMINISTRATIVE SUPPORT MAGNESIUM Routine 07/22/2024 4:47 AM SENIOR ADMINISTRATIVE SUPPORT EGFR Routine 07/22/2024 4:47 AM SENIOR ADMINISTRATIVE SUPPORT CBC WITHOUT DIFFERENTIAL Routine 07/22/2024 4:47 AM SENIOR ADMINISTRATIVE SUPPORT BASIC METABOLIC PANEL Routine 07/22/2024 4:47 AM SENIOR ADMINISTRATIVE SUPPORT VITAMIN B12 Routine 07/21/2024 8:00 PM SENIOR ADMINISTRATIVE SUPPORT FOLATE Routine 07/21/2024 8:00 PM SENIOR ADMINISTRATIVE SUPPORT HOMOCYSTEINE Add-On 07/21/2024 8:00 PM SENIOR ADMINISTRATIVE SUPPORT METHYLMALONIC ACID, SERUM Add-On 07/21/2024 8:00 PM SENIOR ADMINISTRATIVE SUPPORT HIV 1/2 ANTIBODY PLUS P24 ANTIGEN Add-On 07/21/2024 8:00 PM SENIOR ADMINISTRATIVE SUPPORT RPR Add-On 07/21/2024 8:00 PM SENIOR ADMINISTRATIVE SUPPORT TROPONIN T HIGH-SENSITIVITY 2-HOUR Timed 07/21/2024 1:[address] SU[address] HEAD WO CONTRAST ED 07/21/2024 1 :05 PM SENIOR ADMINISTRATIVE SUPPORT URINALYSIS AND REFLEX TO MICROSCOPIC AND CULTURE STAT 07/21/2024 12:47 PM SENIOR ADMINISTRATIVE SUPPORT TROPONIN T HIGH-SENSITIVITY SERIES (BASELINE, 2HR, 4HR, 6HR) STAT 07/21/2024 12:00 PM SENIOR ADMINISTRATIVE SUPPORT COMPREHENSIVE METABOLIC PANEL STAT 07/21/2024 12:00 PM SENIOR ADMINISTRATIVE SUPPORT EGFR STAT 07/21/2024 12:00 PM SENIOR ADMINISTRATIVE SUPPORT TSH STAT 07/21/2024 12:00 PM SENIOR ADMINISTRATIVE SUPPORT DIFFERENTIAL AUTO STAT 07/21/2024 12: 00 PM SENIOR ADMINISTRATIVE SUPPORT VALPROIC ACID LEVEL, TOTAL STAT 07/21/2024 12:00 PM SENIOR ADMINISTRATIVE SUPPORT CBC WITH AUTO DIFFERENTIAL STAT 07/21/2024 12:00 PM SENIOR ADMINISTRATIVE SUPPORT XR CHEST 1 VIEW ED 07/21/2024 11:47 AM SENIOR ADMINISTRATIVE SUPPORT ECG 12-LEAD STAT 07/21/2024 11:15 AM SENIOR ADMINISTRATIVE SUPPORT SCREENING MAMMOGRAM BILATERAL W EVANGELIST Schedule Routine, Read Routine (OP Routine) 07/03/2024 11:19 AM SENIOR ADMINISTRATIVE SUPPORT Screening mammogram, encounter for from Last 3 Months Results * (ABNORMAL) Drug Screen, Urine L and D with Reflex Confirmation (07/23/2024 3:12 PM SENIOR ADMINISTRATIVE SUPPORT) Amphetamine, ur Not Detected CutOff 500ng/mL Comment: Interpretive Data - Amphetamines: Samples containing greater than 500 ng/mL d-methamphetamine or other cross-reacting amphetamine compounds are reported as positive. Amphetamine immunoassays are subject to significant false positive rates due to cross-reactivity of non-amphetamine drugs. Confirmatory testing required for definitive results. Current Interpretive Data was last reviewed 2022. Barbiturates, ur Not Detected CutOff 200ng/mL [facility] Comment: Interpretive Data - Barbiturates: Samples containing greater than 200 ng/mL secobarbital or other cross-reacting barbiturate compounds are reported as positive. False positive and false negative results are possible. Confirmatory testing required for definitive results. Current Interpretive Data was last reviewed 2022. Benzodiazepines, ur Screen Positive, presumptive (A) CutOff 100ng/mL [facility] Comment: Interpretive Data - Benzodiazepines: Samples containing greater than 100 ng/mL nordiazepam or other cross-reacting compounds are reported as positive. False positive and false negative results are possible. Confirmatory testing required for definitive results. Current Interpretive Data was last reviewed 2022. Cannabinoids, ur Screen Positive, presumptive (A) CutOff 50 ng/mL [facility] Comment: Interpretive Data - Cannabinoids: Samples containing greater than 50 ng/mL delta-9 THC -COOH or other cross- reacting compounds are reported as positive. False positive and false negative results are possible. Confirmatory testing required for definitive results. Current Interpretive Data was last reviewed 2022. Cocaine, ur Not Detected CutOff 150ng/mL [facility] Comment: Interpretive Data - Cocaine: Samples containing greater than 150 ng/mL benzoylecgonine or other cross- reacting compounds are reported as positive. False positive and false negative results are possible. Confirmatory testing required for definitive results. Current Interpretive Data was last reviewed 2022. Fentanyl, Ur Not Detected CutOff 5 ng/mL [facility] Comment: Interpretive Data - Fentanyl: Samples containing greater than 5 ng/mL norfentanyl, fentanyl, or other cross-reacting fentanyl compounds are reported as positive. False positive and false negative results are possible. Confirmatory testing required for definitive results. Current Interpretive Data was last reviewed 2023. Methadone, ur Not Detected CutOff 300ng/mL [facility] Comment: Interpretive Data - Methadone: Samples containing greater than 300 ng/mL d,l-methadone or other cross-reacting compounds are reported as positive. False positive and false negative results are possible. Confirmatory testing required for definitive results. Current Interpretive Data was last reviewed 2022. Opiates, ur Not Detected CutOff 300ng/mL [facility] Comment: Interpretive Data - Opiates: Samples containing [...] revised on 2017. Urine 07/23/2024 3:12 PM SENIOR ADMINISTRATIVE SUPPORT 07/23/2024 3:20 PM SENIOR ADMINISTRATIVE SUPPORT Narrative [facility] - 07/23/2024 3:47 PM SENIOR ADMINISTRATIVE SUPPORT Drug of Abuse screening is performed by immunoassay for medical purposes only. This is not to be used for Pain Management purposes. If Detected, confirmation testing will be performed for Amphetamines, Barbiturates, Benzodiazepines, Cannabinoids, Cocaine, Fentanyl, Methadone, Opiates, Oxycodone or Phencyclidine. Ilda Albert MD LAB URINE ORDERABLES Final Result Performing Organization Address [facility] Co de Phone Number HEL[address] [address] * Cannabinoids, urine, confirmation (07/23/2024 3:12 PM SENIOR ADMINISTRATIVE SUPPORT) [facility] Delta-8 Carboxy-THC 13 Cutoff: 5 ng/mL [facility] Delta-9 Carboxy-THC 244 Cutoff: 5 ng/mL [facility] Cannabinoids ur interpretation Positive. [facility] Comment: ADDITIONAL INFORMATION This report is intended for use in clinical monitoring and management of patients. It is not intended for use in employment-related testing. This test was developed and its performance characteristics determined by [facility] in a manner consistent with CLIA requirements. This test has not been cleared or approved by the U.S. Food and Drug Administration. Test Performed by: [place] [id number] Finance Analyst: Fazal Zavaleta Ph.D.; CLIA# [id number] Urine 07/23/2024 3:12 PM SENIOR ADMINISTRATIVE SUPPORT 07/23/2024 3:47 PM SENIOR ADMINISTRATIVE SUPPORT Ilda Albert MD LAB URINE ORDERABLES Final Result Performing Organization Address [facility] Co de Phone Number [facility] [address] [place] [address] [place] [facility] * Benzodiazepine, urine, confirmation (07/23/2024 3:12 PM SENIOR ADMINISTRATIVE SUPPORT) Nordiazepam, ur Negative Cutoff: 10 ng/mL [facility] Oxazepam, ur Negative Cutoff: 10 ng/mL [facility] Lorazepam, ur 167 Cutoff: 10 ng/mL [facility] Temazepam, ur Negative Cutoff: 10 ng/mL [facility] 2-hydroxy ethyl flurazepam, ur Negative Cutoff: 10 ng/mL [facility] 7-aminoclonazepam, ur Negative Cutoff: 10 ng/mL [facility] Alpha-hydroxyalpraz olam, ur Negative Cutoff: 10 ng/mL [facility] 7-aminoflunitrazepa m, ur Negative Cutoff: 10 ng/mL [facility] Alpha-hydroxy triazolam, ur Negative Cutoff: 10 ng/mL [facility] Benzo interp, ur Positive. [facility] Comment: ADDITIONAL INFORMATION This report is intended for use in clinical monitoring and management of patients. It is not intended for use in employment-related testing. This test was developed and its performance characteristics determined by [facility] in a manner consistent with CLIA requirements. This test has not been cleared or approved by the U.S. Food and Drug Administration. Test Performed by: [facility] [place] [id number] Finance Analyst: Fazal Zavaleta Ph.D.; CLIA# [id number] Alprazolam, ur Negative Cutoff: 10 ng/mL [facility] Chlordiazepoxide, ur Negative Cutoff: 10 ng/mL [facility] Clonazepam, ur Negative Cutoff: 10 ng/mL [facility] Diazepam, ur Negative Cutoff: 10 ng/mL [facility] Midazolam, ur Negative Cutoff: 10 ng/mL [facility] Alpha-hydroxy midazolam, ur Negative Cutoff: 10 ng/mL [facility] Clobazam, ur Negative Cutoff: 10 ng/mL [facility] N-desmethylclobazam , ur Negative Cutoff: 10 ng/mL [facility] Flunitrazepam, ur Negative Cutoff: 10 ng/mL [facility] Flurazepam, ur Negative Cutoff: 10 ng/mL [facility] Prazepam, ur Negative Cutoff: 10 ng/mL [facility] Triazolam, ur Negative Cutoff: 10 ng/mL [facility] Zolpidem, ur Negative Cutoff: 10 ng/mL [facility] Zolpidem aaxoml-0-owjbnfjecw acid, ur Negative Cutoff: 10 ng/mL [facility] Urine 07/23/2024 3:12 PM SENIOR ADMINISTRATIVE SUPPORT 07/23/2024 3:47 PM SENIOR ADMINISTRATIVE SUPPORT Ilda Albert MD LAB URINE ORDERABLES Final Result Performing Organization Address [facility] Co de Phone Number [facility] [address] [employer] [place] [address] [place] [facility] * (ABNORMAL) eGFR (07/23/2024 2:13 PM SENIOR ADMINISTRATIVE SUPPORT) eGFR 55(L) >=60 mL/min/1. 73 m2 Comment: [...] last reviewed 2021. Blood 07/23/2024 2:13 PM SENIOR ADMINISTRATIVE SUPPORT 07/23/2024 2:59 PM SENIOR ADMINISTRATIVE SUPPORT Ilda Albert MD LAB BLOOD ORDERABLES Final Result Performing Organization Address City/[facility]/ZIP Co de Phone Number HELENE[address] [place] [address] * Differential, auto (07/23/2024 2:13 PM SENIOR ADMINISTRATIVE SUPPORT) Neutrophil abs 2.8 1.5 - 6.5 K/cumm Imm gran abs 0.0 0.0 - 0.1 K/cumm [facility] Lymphocyte abs 1.5 0.8 - 3.3 K/cumm [facility] Monocyte abs 0.4 0.2 - 0.8 K/cumm [facility] Eosinophil abs 0.2 0.0 - 0.5 K/cumm [facility] Basophil abs 0.0 0.0 - 0.1 K/cumm [facility] Neutrophil pct 57.1 % [facility] Comment: Interpretive Data Percent cell count reference ranges are not reported, since discordance with absolute values may lead to misinterpretation of CBC data. Current Interpretive Data was last revised on 2017. Imm gran pct 0.2 % [facility] Comment: Interpretive Data Percent cell count reference ranges are not reported, since discordance with absolute values may lead to misinterpretation of CBC data. Current Interpretive Data was last revised on 2017. Lymphocyte pct 30.9 % [facility] Comment: Interpretive Data Percent cell count reference ranges are not reported, since discordance with absolute values may lead to misinterpretation of CBC data. Current Interpretive Data was last revised on 2017. Monocyte pct 7.5 % [facility] Comment: Interpretive Data Percent cell count reference ranges are not reported, since discordance with absolute values may lead to misinterpretation of CBC data. Current Interpretive Data was last revised on 2017. Eosinophil pct 4.1 % [facility] Comment: Interpretive Data Percent cell count reference ranges are not reported, since discordance with absolute values may lead to misinterpretation of CBC data. Current Interpretive Data was last revised on 2017. Basophil pct 0.2 % [facility] Comment: Interpretive Data Percent cell count reference ranges are not reported, since discordance with absolute values may lead to misinterpretation of CBC data. Current Interpretive Data was last revised on 2017. Blood 07/23/2024 2:1 3 PM SENIOR ADMINISTRATIVE SUPPORT 07/23/2024 2:59 PM SENIOR ADMINISTRATIVE SUPPORT Ilda Albert MD LAB BLOOD ORDERABLES Final Result Performing Organization Address [facility] Co de Phone Number [facility] [address] [phone] * (ABNORMAL) CBC with auto differential (07/23/2024 2:13 PM SENIOR ADMINISTRATIVE SUPPORT) [facility] WBC 4.8 3.8 - 9.9 K/cumm Hgb 14.4 11.9 - 15.5 g/dL [facility] Hct 44.4 35.6 - 45.5 % [facility] Plt 100(L) 150 - 400 K/cumm [facility] MPV 12.3 9.1 - 12.3 fL [facility] RBC 4.86 3.90 - 5.20 M/cumm [facility] MCV 91.4 81.3 - 96.4 fL [facility] MCH 29.6 27.1 - 33.3 pg [facility] MCHC 32.4 32.3 - 35.7 g/dL [facility] RDW CV 12.2 11.1 - 14.9 % [facility] RDW SD 41.0 35.7 - 48.1 fL [facility] NRBC abs 0.00 0.00 - 0.01 K/cumm [facility] Blood 07/23/2024 2:13 PM SENIOR ADMINISTRATIVE SUPPORT 07/23/2024 2:59 PM SENIOR ADMINISTRATIVE SUPPORT Ilda Albert MD LAB BLOOD ORDERABLES Final Result Performing Organization Address [facility] Co de Phone Number [facility]ED[facility] [address] [place] [address] * (ABNORMAL) Basic metabolic panel (07/23/2024 2:13 PM SENIOR ADMINISTRATIVE SUPPORT) [facility] Sodium 136 135 - 145 mmol/L Potassium, pl 4.3 3.3 - 4.9 mmol/L [facility] Comment:Delta - Results Revi ewed Chloride 100 97 - 110 mmol/L [facility] CO2 22 22 - 32 mmol/L [facility] Anion gap 14 2 - 15 mmol/L [facility] BUN 22 6 - 25 mg/dL [facility] Creatinine 1.14(H) 0.60 - 1.10 mg/dL [facility] Glucose 189 70 - 199 mg/dL [facility] Comment: Delta - Results Reviewed Interpretive Data [...] 2022. Calcium 9.0 8.5 - 10.3 mg/dL [facility] Blood 07/23/2024 2:13 PM SENIOR ADMINISTRATIVE SUPPORT 07/23/2024 2:59 PM SENIOR ADMINISTRATIVE SUPPORT Ilda Albert MD LAB BLOOD ORDERABLES Final Result [facility] [address] [facility] Department [place] [address] * MRI Brain Epilepsy W WO Contrast (07/23/2024 11:47 AM SENIOR ADMINISTRATIVE SUPPORT) Anatomical Region Laterality Modality Head and Neck N/A Magnetic Resonan ce 07/23/2024 11:5 5 AM SENIOR ADMINISTRATIVE SUPPORT Narrative 07/23/2024 12:02 PM SENIOR ADMINISTRATIVE SUPPORT EXAM DESCRIPTION: MRI BRAIN WITHOUT AND WITH [...] blood products. Images stored on PACS. MR avionic technician reports patient with involuntary tremors causing [...] Hyperostosis frontalis interna. ORBITS: No acute abnormality. [place] ocular lenses replaced bilaterally. PARANASAL SINUSES AND [...] Puma Castro M.D. JAMESON T: Report ID: [id number] Reading Location: [place] [address] Procedure Note Puma Castro MD - 07/23/2024 [...] blood products. Images stored on PACS. MR avionic technician reports patientwith involuntary tremors causing motion [...] Hyperostosis frontalis interna. ORBITS: No acute abnormality. [place] ocular lenses replaced bilaterally. PARANASAL SINUSES AND [...] 12:02 PM - Electronically signed by Puma BARBA T: Report ID: [id number] Reading Location: [place] [address] Aly Westbrook MD [employer] MRI PROCEDURES Fi nal Result * eGFR (07/22/2024 4:47 AM SENIOR ADMINISTRATIVE SUPPORT) eGFR 69 >=60 mL/min/1. 73 m2 Comment: [...] last reviewed 2021. Blood 07/22/2024 4:47 AM SENIOR ADMINISTRATIVE SUPPORT 07/22/2024 5:15 AM SENIOR ADMINISTRATIVE SUPPORT Jaren Rosenberg MD LAB BLOOD ORDERABLES Final Result Performing Organization Address [facility] Co de Phone Number [facility] [address] [place] [address] * (ABNORMAL) CBC without differential (07/22/2024 4:47 AM SENIOR ADMINISTRATIVE SUPPORT) WBC 6.4 3.8 - 9.9 K/cumm Hgb 13.6 11.9 - 15.5 g/dL [facility] Hct 40.3 35.6 - 45.5 % [facility] Plt 100(L) 150 - 400 K/cumm [facility] MPV 12.2 9.1 - 12.3 fL [facility] RBC 4.45 3.90 - 5.20 M/cumm [facility] MCV 90.6 81.3 - 96.4 fL [facility] MCH 30.6 27.1 - 33.3 pg [facility] MCHC 33.7 32.3 - 35.7 g/dL [facility] RDW CV 12.5 11.1 - 14.9 % [facility] RDW SD 41.5 35.7 - 48.1 fL [facility] NRBC abs 0.00 0.00 - 0.01 K/cumm [facility] Blood 07/22/2024 4:47 AM SENIOR ADMINISTRATIVE SUPPORT 07/22/2024 5:15 AM SENIOR ADMINISTRATIVE SUPPORT us Jaren Rosenberg MD LAB BLOOD ORDERABLES Final Result Performing Organization Address City/[facility] Co de Phone Number [facility] [address] [place] [address] * Magnesium (07/22/2024 4:47 AM SENIOR ADMINISTRATIVE SUPPORT) [facility] Magnesium 1.7 1.4 - 2.5 mg/dL Blood 07/22/2024 4:47 AM SENIOR ADMINISTRATIVE SUPPORT 07/22/2024 5:15 AM SENIOR ADMINISTRATIVE SUPPORT Ilda Albert MD LAB BLOOD ORDERABLES Final Result [place] [id number] [place] [address] * (ABNORMAL) Basic metabolic panel (07/22/2024 4:47 AM SENIOR ADMINISTRATIVE SUPPORT) [facility] Sodium 139 135 - 145 mmol/L Potassium, pl 3.2(L) 3.3 - 4.9 mmol/L [facility] Chloride 101 97 - 110 mmol/L [facility] CO2 28 22 - 32 mmol/L [facility] Anion gap 10 2 - 15 mmol/L [facility] BUN 13 6 - 25 mg/dL [facility] Creatinine 0.94 0.60 - 1.10 mg/dL [facility] Glucose 75 70 - 199 mg/dL [facility] Comment: Interpretive Data Fasting glucose >/= 126 [...] 2022. Calcium 9.1 8.5 - 10.3 mg/dL [facility] Blood 07/22/2024 4:47 AM SENIOR ADMINISTRATIVE SUPPORT 07/22/2024 5:15 AM SENIOR ADMINISTRATIVE SUPPORT us Jaren Rosenberg MD LAB BLOOD ORDERABLES Final Result Performing Organization Address [facility] Co de Phone Number [facility] [place] [address] * HIV 1/2 Antibody plus p24 Antigen Blood (07/21/2024 8:00 PM SENIOR ADMINISTRATIVE SUPPORT) Pathologist [facility] HIV 1/2 ab + p24 ag Nonreactive Nonreactive Comment:Nonreactive for HIV- 1 antigen and HIV-1/HIV-2 antibodies. No laboratory evidence of HIV infection. If acute HIV infection is suspected, consider testing for HIV-1 RNA. Current interpretive data was last revised on 22. Blood 07/21/2024 8:00 PM SENIOR ADMINISTRATIVE SUPPORT 07/21/2024 8:08 PM SENIOR ADMINISTRATIVE SUPPORT Aly Westbrook MD LAB MICROBIOLOGY - NERIN ORDERABLES Final Result Performing Organization Address [facility] de Phone Number DEEDEE [address] [address] * (ABNORMAL) Methylmalonic acid, serum (07/21/2024 8:00 PM SENIOR ADMINISTRATIVE SUPPORT) Pathologist [facility] MMA 0.49(H) <=0.40 nmol/mL [place] [facility] Comment: In this sample, the concentration of methylmalonic acid (MMA) was minimally elevated. As the upper limit of the reference range varies in different laboratories from 0.4 to 0.6 nmol/mL. This finding could be considered normal, especially if the patient does not show other signs of vitamin B12 deficiency. ADDITIONAL INFORMATION This test was developed and its performance characteristics determined by [facility] in a manner consistent with CLIA requirements. This test has not been cleared or approved by the U.S. Food and Drug Administration. Test Performed by: [facility] - [address] [address] Finance Analyst: Fazal Zavaleta Ph.D.; CLIA# [id number] Blood 07/21/2024 8:00 PM SENIOR ADMINISTRATIVE SUPPORT 07/21/2024 8:08 PM SENIOR ADMINISTRATIVE SUPPORT Aly Westbrook MD LAB BLOOD ORDERABLES Final Result [facility] [address] [place] [address] [facility] * RPR Blood (07/21/2024 8:00 PM SENIOR ADMINISTRATIVE SUPPORT) Pathologist [facility] RPR Nonreactive Nonreactive Comment:Testing performed by : [facility], [address] [place] [address], [id number] Blood 07/21/2024 8:00 PM SENIOR ADMINISTRATIVE SUPPORT 07/21/2024 11:43 PM SENIOR ADMINISTRATIVE SUPPORT Aly Westbrook MD LAB MICROBIOLOGY - GE NERAL ORDERABLES Final Result Performing Organization Address [facility] Co de Phone Number [address] [address] * Homocysteine (07/21/2024 8:00 PM SENIOR ADMINISTRATIVE SUPPORT) Pathologist [facility] Homocysteine 13.4 0.0 - 15.0 mcmol/L Comment:Testing performed by : [facility], [address] [place] [address], [id number] Blood 07/21/2024 8:00 PM SENIOR ADMINISTRATIVE SUPPORT 07/21/2024 11:43 PM SENIOR ADMINISTRATIVE SUPPORT Aly Westbrook MD LAB BLOOD ORDERABLES Final Result Performing Organization Address City/[facility]/ZIP Co de Phone Number [address] [place] [address] * Folate (07/21/2024 8:00 PM SENIOR ADMINISTRATIVE SUPPORT) Pathologist [facility] Folic acid 13.4 >=5.0 ng/mL Blood 07/21/2024 8:00 PM SENIOR ADMINISTRATIVE SUPPORT 07/21/2024 8:08 PM SENIOR ADMINISTRATIVE SUPPORT Aly Westbrook MD LAB BLOOD ORDERABLES Final Result Performing Organization Address [facility] Co de Phone Number [facility] [address] [place] [address] * Vitamin B12 (07/21/2024 8:00 PM SENIOR ADMINISTRATIVE SUPPORT) Vitamin B12 437 230 - 1,250 pg/mL Blood 07/21/2024 8:00 PM SENIOR ADMINISTRATIVE SUPPORT 07/21/2024 8:08 PM SENIOR ADMINISTRATIVE SUPPORT Aly Westbrook MD LAB BLOOD ORDERABLES Final Result Performing Organization Address [facility] Co de Phone Number [place] [address] [address] * Troponin T high-sensitivity 2-hour (07/21/2024 1:58 PM SENIOR ADMINISTRATIVE SUPPORT) Pathologist [facility] Trop T hs <6 <=14 ng/L Comment: Interpretive Data For further hscTnT resources including the diagnostic algorithm and an aid in interpretation, copy and paste this link: https://nrl.testcatalog.org/show/hsTrop Current Interpretive Data last revised 2020. Trop T hs delta 0 ng/L [facility] Trop T hs interp Insignificant [facility] Blood 07/21/2024 1:58 PM SENIOR ADMINISTRATIVE SUPPORT 07/21/2024 2:10 PM SENIOR ADMINISTRATIVE SUPPORT Mark Moncada DO LAB BLOOD ORDERABLES F inal Result Performing Organization Address City/[facility]/ZIP Co de Phone Number [facility] [address] [place] [address] * CT Head WO Contrast (07/21/2024 1:05 PM SENIOR ADMINISTRATIVE SUPPORT) Anatomical Region Laterality Modality Head and Neck N/A Computed Tomogra phy 07/21/2024 1:36 PM SENIOR ADMINISTRATIVE SUPPORT Narrative 07/21/2024 1:40 PM SENIOR ADMINISTRATIVE SUPPORT EXAM DESCRIPTION: CT HEAD WO CONTRAST REASON [...] clear mastoidectomy bed. ORBITS: No acute abnormality. [place] ocular lenses replaced bilaterally. OTHER: No other significant abnormality. IMPRESSION: No acute intracranial process. THIS IS AN ELECTRONICALLY VERIFIED FINAL REPORT 07/21/2024 1:40 PM - Electronically signed by Puma Castro M.D. JAMESON T: Report ID: [id number] Reading Location: [id number] Procedure Note Puma Castro MD - 07/21/2024 [...] clear mastoidectomy bed. ORBITS: No acute abnormality. [place] ocular lenses replacedbilaterally. OTHER: No other significant abnormality. IMPRESSION: No acute intracranial process. THIS IS AN ELECTRONICALLY VERIFIED FINAL REPORT 07/21/2024 1:40 PM - Electronically signed by Puma BARBA T: Report ID: [id number] Reading Location: [place] [address] us Samer Katya Moncada DO IMG CT PROCEDURES Lou l Result * Urinalysis reflex to microscopic and culture Urine (07/21/2024 12:47 PM SENIOR ADMINISTRATIVE SUPPORT) Color, ur Yellow Yellow Clarity, ur Clear Clear [facility] Specific gravity, ur 1.010 1.003 - 1.030 [facility] pH, urine 7.0 [facility] Comment: Interpretive Data U rine pH is affected by diet, medications, systemic acid-base disturbances, and renal tubular function. pH may affect urinary stone formation. For example, urine pH below 6.0 may help reduce the tendency for calcium phosphate stones and pH greater than 6.0 may reduce the tendency for uric acid stone formation. Source: [facility] [place] Current Interpretive Data was last revised on 2017 Protein, ur ql Negative Negative [facility] Glucose, ur ql Negative Negative [facility] Ketones, ur Negative Negative [facility] Bilirubin, ur Negative Negative [facility] Blood, ur Negative Negative [facility] Urobilinogen, ur <2.0 <2.0 mg/dL [facility] Nitrite, ur Negative Negative [facility] Leukocyte esterase, ur Negative Negative [facility] UA reflex comment Reflex conditions for microscopic UA and culture not met. [facility] Urine 07/21/2024 12:4 7 PM SENIOR ADMINISTRATIVE SUPPORT 07/21/2024 12:53 PM SENIOR ADMINISTRATIVE SUPPORT Mark Moncada DO LAB MICROBIOLOGY - GEN ERAL ORDERABLES Final Result Performing Organization Address [facility] Co de Phone Number [address] [address] * Troponin T high-sensitivity series (baseline, 2hr, 4hr, 6hr) (07/21/2024 12:00 PM SENIOR ADMINISTRATIVE SUPPORT) Trop T hs <6 <=14 ng/L Comment: Interpretive Data For further hscTnT resources including the diagnostic algorithm and an aid in interpretation, copy and paste this link: https://nrl.testcatalog.org/show/hsTrop Current Interpretive Data last revised 2020. Blood 07/21/2024 12:0 0 PM SENIOR ADMINISTRATIVE SUPPORT 07/21/2024 12:03 PM SENIOR ADMINISTRATIVE SUPPORT Mark Moncada LAB BLOOD ORDERABLES F inal Result Performing Organization Address [facility] Co de Phone Number [address] [address] * eGFR (07/21/2024 12:00 PM SENIOR ADMINISTRATIVE SUPPORT) eGFR 69 >=60 mL/min/1. 73 m2 Comment: [...] reviewed 2021. Blood 07/21/2024 12:0 0 PM SENIOR ADMINISTRATIVE SUPPORT 07/21/2024 12:03 PM SENIOR ADMINISTRATIVE SUPPORT us Samer Katya Moncada DO LAB BLOOD ORDERABLES F inal Result [place] [id number] [facility] [place] [address] * Differential, auto (07/21/2024 12:00 PM SENIOR ADMINISTRATIVE SUPPORT) Neutrophil abs 2.7 1.5 - 6.5 K/cumm Imm gran abs 0.0 0.0 - 0.1 K/cumm [facility] Lymphocyte abs 2.8 0.8 - 3.3 K/cumm [facility] Monocyte abs 0.7 0.2 - 0.8 K/cumm [facility] Eosinophil abs 0.4 0.0 - 0.5 K/cumm [facility] Basophil abs 0.0 0.0 - 0.1 K/cumm [facility] Neutrophil pct 40.5 % [facility] Comment: Interpretive Data Percent cell count reference ranges are not reported, since discordance with absolute values may lead to misinterpretation of CBC data. Current Interpretive Data was last revised on 2017. Imm gran pct 0.3 % [facility] Comment: Interpretive Data Percent cell count reference ranges are not reported, since discordance with absolute values may lead to misinterpretation of CBC data. Current Interpretive Data was last revised on 2017. Lymphocyte pct 42.1 % [facility] Comment: Interpretive Data Percent cell count reference ranges are not reported, since discordance with absolute values may lead to misinterpretation of CBC data. Current Interpretive Data was last revised on 2017. Monocyte pct 10.0 % [facility] Comment: Interpretive Data Percent cell count reference ranges are not reported, since discordance with absolute values may lead to misinterpretation of CBC data. Current Interpretive Data was last revised on 2017. Eosinophil pct 6.5 % [facility] Comment: Interpretive Data Percent cell count reference ranges are not reported, since discordance with absolute values may lead to misinterpretation of CBC data. Current Interpretive Data was last revised on 2017. Basophil pct 0.6 % [facility] Comment: Interpretive Data Percent cell count reference ranges are not reported, since discordance with absolute values may lead to misinterpretation of CBC data. Current Interpretive Data was last revised on 2017. Blood 07/21/2024 12:0 0 PM SENIOR ADMINISTRATIVE SUPPORT 07/21/2024 12:03 PM SENIOR ADMINISTRATIVE SUPPORT Mark Moncada DO LAB BLOOD ORDERABLES F inal Result [facility] [address] [facility] [place] [address] * (ABNORMAL) CBC with auto differential (07/21/2024 12:00 PM SENIOR ADMINISTRATIVE SUPPORT) Pathologist [facility] WBC 6.6 3.8 - 9.9 K/cumm Hgb 15.4 11.9 - 15.5 g/dL [facility] Hct 46.2(H) 35.6 - 45.5 % [facility] Plt 125(L) 150 - 400 K/cumm [facility] MPV 12.4(H) 9.1 - 12.3 fL [facility] RBC 5.07 3.90 - 5.20 M/cumm [facility] MCV 91.1 81.3 - 96.4 fL [facility] MCH 30.4 27.1 - 33.3 pg [facility] MCHC 33.3 32.3 - 35.7 g/dL [facility] RDW CV 12.5 11.1 - 14.9 % [facility] RDW SD 41.8 35.7 - 48.1 fL [facility] NRBC abs 0.00 0.00 - 0.01 K/cumm [facility] Blood 07/21/2024 12:0 0 PM SENIOR ADMINISTRATIVE SUPPORT 07/21/2024 12:03 PM SENIOR ADMINISTRATIVE SUPPORT us Mark Moncada LAB BLOOD ORDERABLES F inal Result Performing Organization Address City/[facility]/ZIP Co de Phone Number [address] [address] * TSH (07/21/2024 12:00 PM SENIOR ADMINISTRATIVE SUPPORT) [facility] Thyroid Stimulating Hormone 3.76 0.30 - 4.20 mcIUnit/mL Blood 07/21/2024 12:0 0 PM SENIOR ADMINISTRATIVE SUPPORT 07/21/2024 12:03 PM SENIOR ADMINISTRATIVE SUPPORT [facility] Moncada LAB BLOOD ORDERABLES F inal Result Performing Organization Address [facility] Co de Phone Number [address] [address] * (ABNORMAL) Valproic acid level, total (07/21/2024 12:00 PM SENIOR ADMINISTRATIVE SUPPORT) [facility] Valproic Acid 127.0(H) 50.0 - 100.0 mcg/mL Blood 07/21/2024 12:0 0 PM SENIOR ADMINISTRATIVE SUPPORT 07/21/2024 12:03 PM SENIOR ADMINISTRATIVE SUPPORT [facility] Moncada [facility] BLOOD ORDERABLES F inal Result Performing Organization Address [facility] Co de Phone Number [address] [address] * (ABNORMAL) Comprehensive metabolic panel (07/21/2024 12:00 PM SENIOR ADMINISTRATIVE SUPPORT) [facility] Sodium 140 135 - 145 mmol/L Potassium, pl 4.1 3.3 - 4.9 mmol/L [facility] Chloride 100 97 - 110 mmol/L [facility] CO2 25 22 - 32 mmol/L [facility] Anion gap 15 2 - 15 mmol/L [facility] BUN 13 6 - 25 mg/dL [facility] Creatinine 0.94 0.60 - 1.10 mg/dL [facility] Glucose 73 70 - 199 mg/dL [facility] Comment: Interpretive Data Fasting glucose >/= 126 [...] 2022. Calcium 8.6 8.5 - 10.3 mg/dL [facility] Bilirubin, total 0.3 0.1 - 1.2 mg/dL [facility] Protein, pl 5.9(L) 6.5 - 8.5 g/dL [facility] Albumin 3.7 3.5 - 5.0 g/dL [facility] Alk phos 80 40 - 130 Units/L [facility] ALT <5(L) 7 - 45 Units/L [facility] AST 22 10 - 45 Units/L [facility] Blood 07/21/2024 12:0 0 PM SENIOR ADMINISTRATIVE SUPPORT 07/21/2024 12:03 PM SENIOR ADMINISTRATIVE SUPPORT us Samer Katya Moncada DO LAB BLOOD ORDERABLES F inal Result [place] [address] [facility] [place] [address] * XR Chest 1 Vw Portable (07/21/2024 11:47 AM SENIOR ADMINISTRATIVE SUPPORT) Anatomical Region Laterality Modality Body, Chest N/A Computed Radiogr aphy 07/21/2024 12:1 4 PM SENIOR ADMINISTRATIVE SUPPORT Narrative 07/21/2024 12:15 PM SENIOR ADMINISTRATIVE SUPPORT EXAM DESCRIPTION: XR CHEST 1 VIEW REASON FOR STUDY: weakness Pt BIBEMS from [employer] with c/o AMS. Pt was driving erratically and PD was called and she was found to be altered while parked at [employer]. Pt reports that she has been feeling [...] Willie Bran D.O. PS T: Report ID: [id number] Reading Location: [place] [address] Procedure Note Willie Bran, DO - 07/21/2024 EXAM DESCRIPTION: XR CHEST 1 VIEW REASON FOR STUDY: weakness Pt BIBEMS from [employer] with c/o AMS. Pt was driving erratically and PDwas called and she was found to be altered while parked at [employer]. Ptreports that she has been feeling weak [...] Willie Bran D.O. PS T: Report ID: [id number] Reading Location: [place] [address] Samefreda Moncada DO IMG XR PROCEDURES Lou l Result * ECG 12 lead (07/21/2024 11:15 AM SENIOR ADMINISTRATIVE SUPPORT) Ventricular Rate EKG/Min 47 BPM [facility] Atrial Rate 47 BPM [facility] TX-Interval (MSEC) 248 ms [facility] QRS-Interval (MSEC) 108 ms [facility] QT-Interval (MSEC) 476 ms [facility] QTc 421 ms [facility] P [place] 48 degrees [facility] R [place] 29 degrees [facility] T [place] 19 degrees [facility] Diagnosis Sinus bradycardia with 1st degree A-V block Borderline ECG When compared with ECG of 29-SEP-2021 12:39, [place] interval has increased Confirmed by BALJEET GOMEZ M.D. ([id number]) on 07/21/2024 8:39:21 PM [facility] 07/21/2024 11:1 5 AM SENIOR ADMINISTRATIVE SUPPORT 07/21/2024 8:39 PM SENIOR ADMINISTRATIVE SUPPORT Samefreda Moncada DO ECG ORDERABLES Final Result [facility] * Screening Mammogram Bilateral W Evangelist (07/03/2024 11:19 AM SENIOR ADMINISTRATIVE SUPPORT) Anatomical Region Laterality Modality Breast Bilateral Mammography Impressions 07/13/2024 11:16 AM SENIOR ADMINISTRATIVE SUPPORT BI-RADS ATLAS category (overall): 1 - Negative There is no mammographic evidence of malignancy. A 1 year screening mammogram is recommended. The patient has been or will be contacted. We recommend annual screening mammography for women at average risk of breast cancer beginning at age 40, based on guidelines of the [employer] (ACR Practice Parameter for the Performance of Screening and Diagnostic Mammography) and [employer]. For women with and elevated risk of breast cancer, please refer to the ACR Practice Parameter for specific screening recommendations. The patient will be entered into a reminder system with a target due date of 1 year for her next screening exam. Narrative 07/13/2024 11:16 AM SENIOR ADMINISTRATIVE SUPPORT Screening Mammogram Bilateral W Evangelist: 07/03/24 The [...] breast. There has been no suspicious change. us Self Screening Mammogram IMG MAMMO PROCEDURES Fi nal Result from Last 3 Months Insurance [facility] Advance Directives For more information, please contact: [phone] * Full Code (Latest Code Status on File) Date Activated Date Inactivated Comments 07/21/2024 8:01 PM 07/23/2024 9:55 PM Care Teams Sewer Line Photo Inspector Relationship Specialty Start Date End Date Selena Ramos MD PCP - General Family Medicine 12/30/18 Jonah Infante MD [address] [place] [address] Referring Physician Neurology 07/23/24
[2024-08-25 13:16] LABS: Alanine Aminotransferase 19 U/L (6-35); Alkaline Phosphatase 83 U/L (38-126); Anion Gap 8 mmol/L (4-12); Aspartate Amino Transferase 26 U/L (14-36); Bilirubin,Total 0.4 mg/dL (0.2-1.3); Blood Urea Nitrogen 34 mg/dL (7-17); Calcium 9.1 mg/dL (8.4-10.2); Carbon Dioxide 33 mmol/L (22-30); Chloride 101 mmol/L (98-107); Estimated Glomerular Filt Rate 56; Glucose 74 mg/dL (65-110); Potassium 3.9 mmol/L (3.4-5.0); Sodium 142 mmol/L (137-145)
[2024-08-25 13:18] LABS: Cholesterol 208 mg/dL (0-200); HDL Direct 69 mg/dL; Triglycerides 120 mg/dL (<150)
[2024-08-25 13:29] LABS: LDL Cholesterol Direct 108 mg/dL
== END 2024-08-25 11:50 | disposition home or self-care (01) ==
LOC: ANHLAB 11:49
PROVIDERS: PCP Family Medicine; Visit Provider Internal Medicine Cardiovascular Disease
DX: R07.9 Chest pain, unspecified (principal)
CPT/HCPCS: 36415; 80053; 80061